=== PATIENT | male | born 1935 | race Caucasian/White ===

== ENCOUNTER 2019-03-29 21:41 | Inpatient (IN) | payer BC, MEDICARE ==
[~2019-03-29] VITALS: Ht 180.3 cm; Wt 85.8 kg
[2019-03-29 22:02] LABS: BASO # 0.1 x10^3/uL (0.0-0.2); BASO % 1 % (0-3); EOS # 0.1 x10^3/uL (0.0-0.7); EOS % 1 % (0-3); HEMATOCRIT 49.1 % (39.0-53.0); HEMOGLOBIN 16.9 g/dL (13.0-17.5); LYMPH # 0.9 x10^3/uL (1.0-4.8); LYMPH % 5 % (24-48); MEAN CORPUSCULAR HEMOGLOBIN 32 pg (25-35); MEAN CORPUSCULAR HGB CONC 35 g/dL (31-37); MEAN CORPUSCULAR VOLUME 93 fL (79-100); MONO # 0.8 x10^3/uL (0.0-1.1); MONO % 5 % (0-9); NEUT # 16.2 x10^3/uL (1.8-7.7); NEUT % 90 % (31-73); PLATELET COUNT 218 x10^3/uL (140-400); RED BLOOD COUNT 5.26 x10^6/uL (4.30-5.70); RED CELL DISTRIBUTION WIDTH 12.8 % (11.5-14.5); WHITE BLOOD COUNT 18.1 x10^3/uL (4.0-11.0)
--- NOTE | 2019-03-29 22:04 | PHYS DOC ---
Adult General Chief Complaint Chief Complaint: SHORTNESS OF BREATH HPI HPI Patient is a 83 year old male with history of emphysema who presents with acute onset fever, shortness of breath starting several hours prior to ED arrival. Patient tachypnea, O2 saturation of 81% on room air on ED arrival. Reports nonproductive cough, chills, body aches. Patient takes aspirin and albuterol daily. No recent hospital admissions or antibiotics. No history of CAD, congestive heart failure. No other acute symptoms or complaints. History obtained from the patient and the patient's spouse. Patient is visiting from out of state scheduled to return to [place] tomorrow. [] Review of Systems Review of Systems ROS as per HPI. All other review symptoms are negative. All other systems were reviewed and found to be within normal limits, except as documented in this note. Current Medications Current Medications Current Medications Medications (Trade) Dose Ordered Sig/Robi Start Time Stop Time Status Last Admin Dose Admin Acetaminophen (Tylenol) 650 mg 1X ONCE 03/29/19 22:15 03/29/19 22:16 DC 03/29/19 22:12 650 MG Albuterol Sulfate (Ventolin Neb Soln) 10 mg 1X ONCE 03/29/19 22:15 03/29/19 22:16 DC 03/29/19 22:15 10 MG Ipratropium [place] (Atrovent) 1 mg 1X ONCE 03/29/19 22:15 03/29/19 22:16 DC 03/29/19 22:15 1 MG Methylprednisolone Sodium Succinate (SOLU-Medrol 125MG VIAL) 125 mg 1X ONCE 03/29/19 22:15 03/29/19 22:16 DC 03/29/19 22:12 125 MG Sodium Chloride 1,000 ml @ 1,000 mls/hr 1X ONCE 03/29/19 22:15 03/29/19 23:14 DC 03/29/19 22:13 1,000 MLS/HR Physical Exam Physical Exam Constitutional: Acutely ill-appearing with rigors and moderate respiratory distress. [] HENT: Normocephalic, atraumatic, bilateral external ears normal, oropharynx moist, nose normal. [] Eyes: PERRLA, EOMI, conjunctiva normal. [] Neck: Normal range of motion, no tenderness, supple. [] Cardiovascular tachycardic.. [] Lungs & Thorax: Respirations dressed with labored, coarse diminished breath sounds bilaterally with rales in right lung base.[] Abdomen: Bowel sounds normal, soft, no tenderness. [] Skin: Warm, dry, no erythema, no rash. [] Back: No tenderness, no CVA tenderness. [] Extremities: No tenderness, no edema. [] Neurologic: Alert and oriented X 3, normal motor function, normal sensory function, no focal deficits noted. [] Psychologic: Affect normal, judgement normal, mood normal. [] Current Patient Data Vital Signs Vital Signs Date Time Temp Pulse Resp B/P (MAP) Pulse Ox O2 Delivery O2 Flow Rate FiO2 03/29/19 22:00 92 Venturi Mask 03/29/19 21:43 102.8 146 22 137/64 (88) 102.8 Lab Values Laboratory Tests Test 03/29/19 21:46 03/29/19 21:50 O2 Saturation 92 % (92-99) Arterial Blood pH 7.41 (7.35-7.45) Arterial Blood pCO2 at Patient Temp 34 mmHg (35-46) L Arterial Blood pO2 at Patient Temp 63 mmHg (65-108) L Arterial Blood HCO3 21 mmol/L (21-28) Arterial Blood Base Excess -3 mmol/L (-3-3) White Blood Count 18.1 x10^3/uL (4.0-11.0) H Red Blood Count 5.26 x10^6/uL (4.30-5.70) Hemoglobin 16.9 g/dL (13.0-17.5) Hematocrit 49.1 % (39.0-53.0) Mean Corpuscular Volume 93 fL (79-100) Mean Corpuscular Hemoglobin 32 pg (25-35) Mean Corpuscular Hemoglobin Concent 35 g/dL (31-37) Red Cell Distribution Width 12.8 % (11.5-14.5) Platelet Count 218 x10^3/uL (140-400) Neutrophils (%) (Auto) 90 % (31-73) H Lymphocytes (%) (Auto) 5 % (24-48) L Monocytes (%) (Auto) 5 % (0-9) Eosinophils (%) (Auto) 1 % (0-3) Basophils (%) (Auto) 1 % (0-3) Neutrophils # (Auto) 16.2 x10^3/uL (1.8-7.7) H Lymphocytes # (Auto) 0.9 x10^3/uL (1.0-4.8) L Monocytes # (Auto) 0.8 x10^3/uL (0.0-1.1) Eosinophils # (Auto) 0.1 x10^3/uL (0.0-0.7) Basophils # (Auto) 0.1 x10^3/uL (0.0-0.2) Segmented Neutrophils % 86 % (35-66) H Band Neutrophils % 2 % (0-9) Lymphocytes % 5 % (24-48) L Monocytes % 6 % (0-10) Eosinophils % 1 % (0-5) Toxic Granulation Slight Platelet Estimate Adequate (ADEQUATE) Sodium Level 142 mmol/L (136-145) Potassium Level 3.6 mmol/L (3.5-5.1) Chloride Level 101 mmol/L (98-107) Carbon Dioxide Level 29 mmol/L (21-32) Anion Gap 12 (6-14) Blood Urea Nitrogen 15 mg/dL (8-26) Creatinine 1.0 mg/dL (0.7-1.3) Estimated GFR (Cockcroft-Gault) 71.5 BUN/Creatinine Ratio 15 (6-20) Glucose Level 165 mg/dL (70-99) H Lactic Acid Level 2.8 mmol/L (0.4-2.0) H Calcium Level 9.7 mg/dL (8.5-10.1) Total Bilirubin 0.7 mg/dL (0.2-1.0) Aspartate Amino Transferase (AST) 20 U/L (15-37) Alanine Aminotransferase (ALT) 28 U/L (16-63) Alkaline Phosphatase 98 U/L (46-116) Troponin I Quantitative < 0.017 ng/mL (0.000-0.055) KE-Rcz-Z-Type Natriuretic Peptide 153 pg/mL (0-449) Total Protein 7.5 g/dL (6.4-8.2) Albumin 4.0 g/dL (3.4-5.0) Albumin/Globulin Ratio 1.1 (1.0-1.7) Laboratory Tests 03/29/19 21:50 Laboratory Tests 03/29/19 21:50 EKG EKG [EKG: Sinus tach, rate 135, right bundle branch block, further interpretation limited due to underlying artifact.] Radiology/Procedures Radiology/Procedures [Chest x-ray:No obvious discrete infiltrates] Course & Med Decision Making Course & Med Decision Making Pertinent Labs and Imaging studies reviewed. (See chart for details) [Breathing tx, abx, steroids, IVF and Tamiflu given. Patient requiring O2 by face mask at 4 L to maintain O2 sat> 90%. Dr. Marino to admit to the ICU. Case, labs, progress/current status reviewed in detail with Dr. Patton promotions producer for pulmonology who is agreement with current management. Patient may is at high risk for bipap and/or intubation. ] Dragon Disclaimer Dragon Disclaimer This electronic medical record was generated, in whole or in part, using a voice recognition dictation system. Departure Departure Impression: Primary Impression: Acute respiratory failure with hypoxia Additional Impressions: Sepsis Pneumonia COPD with exacerbation Disposition: ADMITTED INPATIENT Condition: CRITICAL Problem Qualifiers LEIGH ANN PABON DO Mar 29, 2019 22:03
[2019-03-29 22:13] LABS: CALCIUM 9.7 mg/dL (8.5-10.1); GFR 71.5; POTASSIUM 3.6 mmol/L (3.5-5.1)
[2019-03-29] MEDS ORDERED: IV NORMAL SALINE 1000ML BAG 1,000 ML IV ONE (22:15)
[2019-03-29] MEDS ORDERED: ALBUTEROL SULFATE 2.5 MG/3 ML NEBU. CONT NEB ONE (22:15)
[2019-03-29] MEDS ORDERED: IPRATROPIUM BROMIDE 0.5 MG/2.5 ML NEBU. NEB ONE (22:15)
[2019-03-29] MEDS ORDERED: ACETAMINOPHEN 325 MG TABLET. PO ONE (22:15)
[2019-03-29] MEDS ORDERED: methylPREDNISolone SOD SUCC PF 125 MG/2 ML VIAL. IV ONE (22:15)
[2019-03-29 22:18] LABS: % BANDS 2 % (0-9); % EOS 1 % (0-5); % LYMPHS 5 % (24-48); % MONOS 6 % (0-10); % SEGS 86 % (35-66); PLT ESTIMATE ADEQUATE (ADEQUATE); TOXIC GRANULATION SLIGHT
[2019-03-29 22:20] LABS: ALBUMIN/GLOBULIN RATIO 1.1 (1.0-1.7); TOTAL BILIRUBIN 0.7 mg/dL (0.2-1.0); TOTAL PROTEIN 7.5 g/dL (6.4-8.2)
[2019-03-29 22:24] LABS: BASE EXCESS ABG -3 mmol/L (-3-3); HCO3 ABG 21 mmol/L (21-28); PCO2 ABG 34 mmHg (35-46); PO2 ABG 63 mmHg (65-108); SAT O2 ABG 92 % (92-99)
[2019-03-29 22:49] LABS: INFLUENZA A PATIENT NEGATIVE (NEGATIVE); INFLUENZA B PATIENT NEGATIVE (NEGATIVE)
[2019-03-29] MEDS ORDERED: CEFEPIME HCL IV Push 1 GM VIAL. IVP ONE (23:00)
[2019-03-29] MEDS ORDERED: DOXYCYCLINE HYCLATE 100 MG in IV DEXTROSE 5% 100ML 100 ML IV ONE (23:30)
[2019-03-29] MEDS ORDERED: VANCOMYCIN 2 GM in IV NORMAL SALINE 500ML BAG 500 ML IV ONE (23:45)
[2019-03-30] VITALS (16 sets, daily range): BP systolic 120–171; BP diastolic 56–78
[2019-03-30] MEDS ORDERED: IV NORMAL SALINE 1000ML BAG 1,000 ML IV SCH
[2019-03-30] MEDS ORDERED: IBUPROFEN 400 MG TABLET. PO ONE (00:15)
[2019-03-30] MEDS ORDERED: IV NORMAL SALINE 1000ML BAG 1,000 ML IV ONE ×2 (01:00)
[2019-03-30] MEDS: VANCOMYCIN PER PHARMACY MC PRN ×2 (03:34→13:13)
--- NOTE | 2019-03-30 03:37 | NUR ---
Pharmacy Vancomycin Dosing Note S:Consulted to monitor and dose vancomycin started 03/30/19. O:DEEP BOYD is a 83 year old M with Sepsis Pneumonia . Height: 5 feet, 10 inches Weight: 90.154539 kg [place] Body Weight: 73.00 Adjusted Body Weight: 80.08 Dosing Weight: Actual Other Antibiotics: LABS: Last BUN: 15 Last Creatinine: 1.0 Creatinine Clearance: 64.5 mL/min Last WBC: 18.1 Last Procalcitonin: Tmax (past 24 hours): Microbiology: I/O: Drug Levels: Last level: on at Last dose given at Vancomycin Dosing: Loading Dose: 2000 mg x1 03/30/19 0200 Dosing Weight: Actual Target Trough: 15-20 A: Based on: Actual Wt and CrCl P: 1. 03/30/19 1400 Vancomycin 1500 mg IV q12h 2. Follow up Trough level on 03/31/19 at 1330 3. Pharmacy will continue to monitor, follow and adjust therapy as needed. ORAL BLOOM RPH, 03/30/19 0337 Signed: 03/30/19 at 0338 by ORAL BLOOM RPH PHA
--- NOTE | 2019-03-30 04:47 | NUR ---
THIS PATIENT IS BEING ADMITTED TO ICU ROOM 108 FROM THE ED. POSITIVE SEPSIS. UPON ARRIVAL PATIENT WITH IVFS INFUSING. REPORT RECEIVED FROM ANYA THOMPSON FROM ED. BLOOD CULTURES X2, ABX. ELEVATED LACTIC ACID WITH REPEAT THAT WAS NORMAL. PATIENT ALERT AND ORIENTED. FAMILY PRESENT AT ADMIT AND STATES THEY ARE FROM [place] AND WAS IN TOWN FOR HOLIDAY. PATIENT REPORTS SOA AND RESTING WITH EYES CLOSED. WILL CONOTINUE TO MONITOR.
[2019-03-30] MEDS: methylPREDNISolone SOD SUCC PF 125 MG/2 ML VIAL. IV SCH ×3 (05:45→20:22)
[2019-03-30] MEDS ORDERED: PANT20TA2 PO (06:34)
[2019-03-30] MEDS ORDERED: TIOT18CA IH (06:34)
[2019-03-30] MEDS ORDERED: LOSA-73 PO (06:34)
[2019-03-30] MEDS ORDERED: SITA50TA PO (06:34)
[2019-03-30] MEDS ORDERED: ASPI-630 PO (06:34)
[2019-03-30] MEDS ORDERED: HYDR12.58 PO (06:34)
[2019-03-30] MEDS ORDERED: ALBU2.5V14 NEB (06:34)
[2019-03-30 06:46] LABS: BASO % 0 % (0-3); EOS % 0 % (0-3); HEMATOCRIT 43.8 % (39.0-53.0); HEMOGLOBIN 14.7 g/dL (13.0-17.5); LYMPH # 0.5 x10^3/uL (1.0-4.8); LYMPH % 3 % (24-48); MEAN CORPUSCULAR HEMOGLOBIN 32 pg (25-35); MEAN CORPUSCULAR HGB CONC 34 g/dL (31-37); MEAN CORPUSCULAR VOLUME 94 fL (79-100); MONO # 0.7 x10^3/uL (0.0-1.1); MONO % 4 % (0-9); NEUT # 18.5 x10^3/uL (1.8-7.7); NEUT % 94 % (31-73); PLATELET COUNT 188 x10^3/uL (140-400); RED BLOOD COUNT 4.65 x10^6/uL (4.30-5.70); RED CELL DISTRIBUTION WIDTH 12.7 % (11.5-14.5); WHITE BLOOD COUNT 19.8 x10^3/uL (4.0-11.0)
[2019-03-30 07:00] LABS: CALCIUM 8.5 mg/dL (8.5-10.1); GFR 71.5; POTASSIUM 3.6 mmol/L (3.5-5.1)
[2019-03-30] MEDS: IPRATRPIUM/ALBUTEROL 0.5/2.5MG 3 ML NEBU. NEB SCH ×4 (07:29→19:53)
--- NOTE | 2019-03-30 07:41 | RAD ---
Indication: Shortness of breath TECHNIQUE:Portable AP chest X-ray COMPARISON: None FINDINGS: Heart is normal in size. Mild interstitial opacities without focal consolidation. No pneumothorax or large pleural effusion. Visualized bony thorax within normal limits. IMPRESSION: Mild interstitial opacities bilaterally may be secondary to atypical/viral infection or interstitial pulmonary edema. Electronically signed by: Stephon Ronquillo DO (03/30/2019 7:38 AM) [id number]
--- NOTE | 2019-03-30 07:45 | EKG ---
[facility] [address] [place] [address] Test Date: 2019-03-29 Test Time: 21:51:09 Pat Name: DEEP BOYD Department: Room: 108 1 Gender: M Farm Machinery Mechanic: : [id number] Requested By: WARREN MENA Order Number: [id number] Reading MD: Measurements Intervals [place] Rate: 135 P: -90 [place]: 142 QRS: 59 QRSD: 92 T: 41 QT: 274 QTc: 415 Interpretive Statements SUPRAVENTRICULAR TACHYCARDIA INCOMPLETE RIGHT BUNDLE BRANCH BLOCK NO SPECIFIC ECG ABNORMALITIES RI6.01 No previous ECG available for comparison
--- NOTE | 2019-03-30 08:00 | RAD ---
CHEST AP ONLY Clinical indications: Shortness of air. COMPARISON: March 29, 2019. Findings: There is a developing medial left lung base infiltrate. Bibasilar atelectasis is seen. No pleural effusion or pneumothorax is seen. The heart size, pulmonary vasculature, mediastinum and both anirudh are stable. Impression: Developing medial left lung base infiltrate. Electronically signed by: Gonsalo Vasques MD (03/30/2019 7:56 AM) [facility]
[2019-03-30] MEDS ORDERED: ACETAMINOPHEN 500 MG TABLET PO PRN (08:30)
[2019-03-30] MEDS ORDERED: levOFLOXacin PER PHARMACY. MC PRN (08:30)
[2019-03-30] MEDS ORDERED: ALBUTEROL SULFATE 2.5 MG/3 ML NEBU. NEB PRN (08:30)
[2019-03-30] MEDS ORDERED: DEXTROSE 50% 25 GM / 50ML DISP.SYRIN. IV PRN ×2 (08:30→13:15)
[2019-03-30] MEDS ORDERED: ACETAMINOPHEN/CODEINE 300/30MG TABLET. PO PRN (08:30)
[2019-03-30] MEDS ORDERED: guaiFENesin DM 200MG/20MG 10 ML SYRUP PO PRN (08:30)
[2019-03-30] MEDS ORDERED: OSELTAMIVIR 75 MG CAPSULE PO SCH (09:00)
[2019-03-30] MEDS: hydroCHLOROthiazide 12.5 MG CAPSULE PO SCH (09:19)
[2019-03-30] MEDS: BENZONATATE 100 MG CAPSULE. PO SCH ×3 (09:19→20:22)
[2019-03-30] MEDS: LINAGLIPTIN 5 MG TABLET PO SCH (09:20)
[2019-03-30] MEDS: PANTOPRAZOLE 40 MG TABLET.DR. PO SCH (09:20)
[2019-03-30] MEDS: ASPIRIN CHEWABLE 81 MG TABLET. PO SCH (09:20)
[2019-03-30] MEDS: LOSARTAN POTASSIUM 50 MG TABLET. PO SCH (09:20)
--- NOTE | 2019-03-30 10:34 | PDOC1 ---
History and Physical Date of Admission Date of Admission DATE: 03/30/19 TIME: 10:30 Identification/Chief Complaint Chief Complaint SOA and cough and fevers at home x 2-3 days Source Source: Caregiver, Chart review, Patient History of Present Illness History of Present Illness 83 white male, COPDer . ex smoker, with the above CC. Went to ER, 81% on arrival, coughing green phlegm,, low grade temp, SOA, tachypneic, sinus tachy, WBC elevated 18., CXR shows LEft ML PNA, Admitted to ICU, CAP coverage, FEels better currently,eating breakfast., Past Medical History Cardiovascular: HTN, Hyperlipidemia Pulmonary: Bronchitis, COPD Endocrine: Diabetes Past Surgical History Past Surgical History: No pertinent history Family History Family History: Family History Unknown Social History Smoke: Quit ALCOHOL: none Drugs: None Current Problem List Problem List Problems Medical Problems: (1) COPD with exacerbation Status: Acute (2) Sepsis Status: Acute Current Medications Current Medications Current Medications Albuterol Sulfate (Ventolin Neb Soln) 10 mg 1X ONCE CONT NEB Last administered on 03/29/19at 22:15; Start 03/29/19 at 22:15; Stop 03/29/19 at 22:16; Status DC Ipratropium [place] (Atrovent) 1 mg 1X ONCE NEB Last administered on 03/29/19at 22:15; Start 03/29/19 at 22:15; Stop 03/29/19 at 22:16; Status DC Methylprednisolone Sodium Succinate (SOLU-Medrol 125MG VIAL) 125 mg 1X ONCE IV Last administered on 03/29/19at 22:12; Start 03/29/19 at 22:15; Stop 03/29/19 at 22:16; Status DC Sodium Chloride 1,000 ml @ 1,000 mls/hr 1X ONCE IV Last administered on 03/29/19at 22:13; Start 03/29/19 at 22:15; Stop 03/29/19 at 23:14; Status DC Acetaminophen (Tylenol) 650 mg 1X ONCE PO Last administered on 03/29/19at 22:12; Start 03/29/19 at 22:15; Stop 03/29/19 at 22:16; Status DC Cefepime HCl (Maxipime) 1 gm 1X ONCE IVP Last administered on 03/29/19at 23:28; Start 03/29/19 at 23:00; Stop 03/29/19 at 23:01; Status DC Vancomycin HCl (Vanco Per Pharmacy) 1 each PRN DAILY PRN MC SEE COMMENTS Last administered on 03/30/19at 03:34; Start 03/29/19 at 22:45 Doxycycline Hyclate 100 mg/ Dextrose 100 ml @ 50 mls/hr 1X ONCE IV Last administered on 03/30/19at 02:02; Start 03/29/19 at 23:30; Stop 03/30/19 at 01:29; Status DC Vancomycin HCl 2 gm/Sodium Chloride 500 ml @ 250 mls/hr 1X ONCE IV Last administered on 03/30/19at 02:01; Start 03/29/19 at 23:45; Stop 03/30/19 at 01:44 ; Status DC Sodium Chloride 1,000 ml @ 1,000 mls/hr 1X ONCE IV Last administered on 03/30/19at 00:36; Start 03/30/19 at 00:00; Stop 03/30/19 at 00:59; Status DC Sodium Chloride 1,000 ml @ 1,000 mls/hr 1X ONCE IV Last administered on 03/30/19at 00:37; Start 03/30/19 at 01:00; Stop 03/30/19 at 01:59; Status DC Sodium Chloride 1,000 ml @ 125 mls/hr Q8H IV Last administered on 03/30/19at 02:01; Start 03/30/19 at 00:00; Stop 03/30/19 at 00:15; Status DC Albuterol/ Ipratropium (Duoneb) 3 ml RTQID NEB Last administered on 03/30/19at 07:29; Start 03/30/19 at 08:00; Stop 03/31/19 at 07:59 Methylprednisolone Sodium Succinate (SOLU-Medrol 125MG VIAL) 62.5 mg Q8HRS IV Last administered on 03/30/19at 05:45; Start 03/30/19 at 06:00 Oseltamivir Phosphate (Tamiflu) 75 mg BID PO Last administered on 03/30/19at 09:19; Start 03/30/19 at 09:00; Stop 04/04/19 at 08:59 Ibuprofen (Motrin) 400 mg 1X ONCE PO Last administered on 03/30/19at 01:02; Start 03/30/19 at 00:15; Stop 03/30/19 at 00:16; Status DC Vancomycin HCl 1.5 gm/Sodium Chloride 500 ml @ 250 mls/hr Q12H IV ; Start 03/30/19 at 14:00; Status Cancel Vancomycin HCl (Vancomycin Trough Level) 1 each 1X ONCE MC ; Start 03/31/19 at 13:30; Stop 03/31/19 at 13:31 Vancomycin HCl 1.25 gm/Sodium Chloride 250 ml @ 167 mls/hr Q12H IV ; Start 03/30/19 at 14:00 Benzonatate (Tessalon Perle) 100 mg [id number] PO Last administered on 03/30/19at 09:19; Start 03/30/19 at 09:00 Acetaminophen/ Codeine Phosphate (Tylenol #3) 1 tab PRN Q6HRS PRN PO MODERATE PAIN; Start 03/30/19 at 08:30 Acetaminophen (Tylenol) 500 mg PRN Q6HRS PRN PO MILD PAIN / TEMP; Start 03/30/19 at 08:30 Guaifenesin (Robitussin Dm) 10 ml PRN Q6HRS PRN PO COUGH; Start 03/30/19 at 08:30 Albuterol Sulfate (Ventolin Neb Soln) 2.5 mg PRN Q4HRS PRN NEB SHORTNESS OF BREATH; Start 03/30/19 at 08:30 Insulin Human Lispro (HumaLOG) 0-9 UNITS TIDWMEALS SQ ; Start 03/30/19 at 12:00 Dextrose (Dextrose 50%-Water Syringe) 12.5 gm PRN Q15MIN PRN IV SEE COMMENTS; Start 03/30/19 at 08:30 Aspirin (Children'S Aspirin) 81 mg DAILY PO Last administered on 03/30/19at 09:20; Start 03/30/19 at 09:00 Losartan Potassium (Cozaar) 50 mg DAILY PO Last administered on 03/30/19at 09:20; Start 03/30/19 at 09:00 Hydrochlorothiazide (Microzide) 12.5 mg DAILY PO Last administered on 03/30/19at 09:19; Start 03/30/19 at 09:00 Pantoprazole Sodium (Protonix) 40 mg DAILYAC PO Last administered on 03/30/19at 09:20; Start 03/30/19 at 09:00 Linagliptin (Tradjenta) 5 mg DAILY PO Last administered on 03/30/19at 09:20; Start 03/30/19 at 09:00 Levofloxacin/ Dextrose (Levaquin Per Pharmacy) 1 each PRN DAILY PRN MC SEE COMMENTS; Start 03/30/19 at 08:30 Levofloxacin/ Dextrose 100 ml @ 100 mls/hr Q24H IV Last administered on 03/30/19at 09:21; Start 03/30/19 at 09:00 Active Scripts Active Reported Albuterol Sulfate Conc Neb Soln (Albuterol Sulfate) 2.5 Mg/0.5 Ml Vial.neb 2.5 Mg NEB PRN PRN Hydrochlorothiazide Tablet (Hydrochlorothiazide) 12.5 Mg Tablet 12.5 Mg PO DAILY Spiriva (Tiotropium [place]) 18 Mcg Cap.w.dev 1 Cap IH DAILY Protonix (Pantoprazole Sodium) 20 Mg Tablet.dr 1 Tab PO DAILY Losartan Potassium 50 Mg Tablet 50 Mg PO DAILY Aspirin 81 Mg Tab.chew 1 Tab PO DAILY Januvia (Sitagliptin Phosphate) 50 Mg Tablet 1 Tab PO DAILY Allergies Allergies: Coded Allergies: adhesive tape (Verified Allergy, Unknown, 03/30/19) shellfish derived (Verified Allergy, Unknown, 03/30/19) ROS Review of System cough, fever,w eak, chest pain when coughs, all else neg Physical Exam General: No acute distress HEENT: Atraumatic, PERRLA, EOMI, Mucous membr. moist/pink Lungs: Normal air movement, Other (crackles, rhonchi, no wheezing, equal air entry) Heart: S1S2, RRR, no thrills, no rubs, no gallops, no murmurs Cardiovascular: S1, S2 Breasts: Normal, Rt breast nml w/o mass, Lt breast nml w/o mass, Nipples normal Abdomen: Normal bowel sounds, Soft, No tenderness, No hepatosplenomegaly, No masses Male Genitals Exam: normal genitalia, normal prostate PELVIC: Nml ext genitalia Extremities: No clubbing, No cyanosis, No edema, Normal pulses, No tenderness/swelling Skin: No rashes, No breakdown, No significant lesion Neuro: Normal gait, Normal speech, Strength at 5/5 X4 ext, Normal tone, Sensation intact, Cranial nerves 3-12 NL, Reflexes 2+ Psych/Mental Status: Mental status NL, Mood NL Vitals Vitals Vital Signs Date Time Temp Pulse Resp B/P (MAP) Pulse Ox O2 Delivery O2 Flow Rate FiO2 03/30/19 09:20 154/72 03/30/19 07:31 94 Venturi Mask 03/30/19 06:00 78 21 12.0 03/30/19 04:00 98.0 98.0 Labs Labs Laboratory Tests Test 03/29/19 21:46 03/29/19 21:50 03/29/19 22:25 03/29/19 23:34 O2 Saturation 92 % (92-99) Arterial Blood pH 7.41 (7.35-7.45) Arterial Blood pCO2 at Patient Temp 34 mmHg (35-46) Arterial Blood pO2 at Patient Temp 63 mmHg (65-108) Arterial Blood HCO3 21 mmol/L (21-28) Arterial Blood Base Excess -3 mmol/L (-3-3) White Blood Count 18.1 x10^3/uL (4.0-11.0) Red Blood Count 5.26 x10^6/uL (4.30-5.70) Hemoglobin 16.9 g/dL (13.0-17.5) Hematocrit 49.1 % (39.0-53.0) Mean Corpuscular Volume 93 fL (79-100) Mean Corpuscular Hemoglobin 32 pg (25-35) Mean Corpuscular Hemoglobin Concent 35 g/dL (31-37) Red Cell Distribution Width 12.8 % (11.5-14.5) Platelet Count 218 x10^3/uL (140-400) Neutrophils (%) (Auto) 90 % (31-73) Lymphocytes (%) (Auto) 5 % (24-48) Monocytes (%) (Auto) 5 % (0-9) Eosinophils (%) (Auto) 1 % (0-3) Basophils (%) (Auto) 1 % (0-3) Neutrophils # (Auto) 16.2 x10^3/uL (1.8-7.7) Lymphocytes # (Auto) 0.9 x10^3/uL (1.0-4.8) Monocytes # (Auto) 0.8 x10^3/uL (0.0-1.1) Eosinophils # (Auto) 0.1 x10^3/uL (0.0-0.7) Basophils # (Auto) 0.1 x10^3/uL (0.0-0.2) Segmented Neutrophils % 86 % (35-66) Band Neutrophils % 2 % (0-9) Lymphocytes % 5 % (24-48) Monocytes % 6 % (0-10) Eosinophils % 1 % (0-5) Toxic Granulation Slight Platelet Estimate Adequate (ADEQUATE) Sodium Level 142 mmol/L (136-145) Potassium Level 3.6 mmol/L (3.5-5.1) Chloride Level 101 mmol/L (98-107) Carbon Dioxide Level 29 mmol/L (21-32) Anion Gap 12 (6-14) Blood Urea Nitrogen 15 mg/dL (8-26) Creatinine 1.0 mg/dL (0.7-1.3) Estimated GFR (Cockcroft-Gault) 71.5 BUN/Creatinine Ratio 15 (6-20) Glucose Level 165 mg/dL (70-99) Lactic Acid Level 2.8 mmol/L (0.4-2.0) 1.8 mmol/L (0.4-2.0) Calcium Level 9.7 mg/dL (8.5-10.1) Total Bilirubin 0.7 mg/dL (0.2-1.0) Aspartate Amino Transf (AST/SGOT) 20 U/L (15-37) Alanine Aminotransferase (ALT/SGPT) 28 U/L (16-63) Alkaline Phosphatase 98 U/L (46-116) Troponin I Quantitative < 0.017 ng/mL (0.000-0.055) CM-Qvl-C-Type Natriuretic Peptide 153 pg/mL (0-449) Total Protein 7.5 g/dL (6.4-8.2) Albumin 4.0 g/dL (3.4-5.0) Albumin/Globulin Ratio 1.1 (1.0-1.7) Influenza Type A Antigen Negative (NEGATIVE) Influenza Type B Antigen Negative (NEGATIVE) Test 03/30/19 06:10 03/30/19 08:50 White Blood Count 19.8 x10^3/uL (4.0-11.0) Red Blood Count 4.65 x10^6/uL (4.30-5.70) Hemoglobin 14.7 g/dL (13.0-17.5) Hematocrit 43.8 % (39.0-53.0) Mean Corpuscular Volume 94 fL (79-100) Mean Corpuscular Hemoglobin 32 pg (25-35) Mean Corpuscular Hemoglobin Concent 34 g/dL (31-37) Red Cell Distribution Width 12.7 % (11.5-14.5) Platelet Count 188 x10^3/uL (140-400) Neutrophils (%) (Auto) 94 % (31-73) Lymphocytes (%) (Auto) 3 % (24-48) Monocytes (%) (Auto) 4 % (0-9) Eosinophils (%) (Auto) 0 % (0-3) Basophils (%) (Auto) 0 % (0-3) Neutrophils # (Auto) 18.5 x10^3/uL (1.8-7.7) Lymphocytes # (Auto) 0.5 x10^3/uL (1.0-4.8) Monocytes # (Auto) 0.7 x10^3/uL (0.0-1.1) Eosinophils # (Auto) 0.0 x10^3/uL (0.0-0.7) Basophils # (Auto) 0.0 x10^3/uL (0.0-0.2) Sodium Level 140 mmol/L (136-145) Potassium Level 3.6 mmol/L (3.5-5.1) Chloride Level 106 mmol/L (98-107) Carbon Dioxide Level 25 mmol/L (21-32) Anion Gap 9 (6-14) Blood Urea Nitrogen 18 mg/dL (8-26) Creatinine 1.0 mg/dL (0.7-1.3) Estimated GFR (Cockcroft-Gault) 71.5 Glucose Level 244 mg/dL (70-99) Calcium Level 8.5 mg/dL (8.5-10.1) Lactic Acid Level 2.0 mmol/L (0.4-2.0) Laboratory Tests Test 03/29/19 21:46 03/29/19 21:50 03/29/19 22:25 03/29/19 23:34 O2 Saturation 92 % (92-99) Arterial Blood pH 7.41 (7.35-7.45) Arterial Blood pCO2 at Patient Temp 34 mmHg (35-46) Arterial Blood pO2 at Patient Temp 63 mmHg (65-108) Arterial Blood HCO3 21 mmol/L (21-28) Arterial Blood Base Excess -3 mmol/L (-3-3) White Blood Count 18.1 x10^3/uL (4.0-11.0) Red Blood Count 5.26 x10^6/uL (4.30-5.70) Hemoglobin 16.9 g/dL (13.0-17.5) Hematocrit 49.1 % (39.0-53.0) Mean Corpuscular Volume 93 fL (79-100) Mean Corpuscular Hemoglobin 32 pg (25-35) Mean Corpuscular Hemoglobin Concent 35 g/dL (31-37) Red Cell Distribution Width 12.8 % (11.5-14.5) Platelet Count 218 x10^3/uL (140-400) Neutrophils (%) (Auto) 90 % (31-73) Lymphocytes (%) (Auto) 5 % (24-48) Monocytes (%) (Auto) 5 % (0-9) Eosinophils (%) (Auto) 1 % (0-3) Basophils (%) (Auto) 1 % (0-3) Neutrophils # (Auto) 16.2 x10^3/uL (1.8-7.7) Lymphocytes # (Auto) 0.9 x10^3/uL (1.0-4.8) Monocytes # (Auto) 0.8 x10^3/uL (0.0-1.1) Eosinophils # (Auto) 0.1 x10^3/uL (0.0-0.7) Basophils # (Auto) 0.1 x10^3/uL (0.0-0.2) Segmented Neutrophils % 86 % (35-66) Band Neutrophils % 2 % (0-9) Lymphocytes % 5 % (24-48) Monocytes % 6 % (0-10) Eosinophils % 1 % (0-5) Toxic Granulation Slight Platelet Estimate Adequate (ADEQUATE) Sodium Level 142 mmol/L (136-145) Potassium Level 3.6 mmol/L (3.5-5.1) Chloride Level 101 mmol/L (98-107) Carbon Dioxide Level 29 mmol/L (21-32) Anion Gap 12 (6-14) Blood Urea Nitrogen 15 mg/dL (8-26) Creatinine 1.0 mg/dL (0.7-1.3) Estimated GFR (Cockcroft-Gault) 71.5 BUN/Creatinine Ratio 15 (6-20) Glucose Level 165 mg/dL (70-99) Lactic Acid Level 2.8 mmol/L (0.4-2.0) 1.8 mmol/L (0.4-2.0) Calcium Level 9.7 mg/dL (8.5-10.1) Total Bilirubin 0.7 mg/dL (0.2-1.0) Aspartate Amino Transf (AST/SGOT) 20 U/L (15-37) Alanine Aminotransferase (ALT/SGPT) 28 U/L (16-63) Alkaline Phosphatase 98 U/L (46-116) Troponin I Quantitative < 0.017 ng/mL (0.000-0.055) YJ-Fmx-T-Type Natriuretic Peptide 153 pg/mL (0-449) Total Protein 7.5 g/dL (6.4-8.2) Albumin 4.0 g/dL (3.4-5.0) Albumin/Globulin Ratio 1.1 (1.0-1.7) Influenza Type A Antigen Negative (NEGATIVE) Influenza Type B Antigen Negative (NEGATIVE) Test 03/30/19 06:10 03/30/19 08:50 White Blood Count 19.8 x10^3/uL (4.0-11.0) Red Blood Count 4.65 x10^6/uL (4.30-5.70) Hemoglobin 14.7 g/dL (13.0-17.5) Hematocrit 43.8 % (39.0-53.0) Mean Corpuscular Volume 94 fL (79-100) Mean Corpuscular Hemoglobin 32 pg (25-35) Mean Corpuscular Hemoglobin Concent 34 g/dL (31-37) Red Cell Distribution Width 12.7 % (11.5-14.5) Platelet Count 188 x10^3/uL (140-400) Neutrophils (%) (Auto) 94 % (31-73) Lymphocytes (%) (Auto) 3 % (24-48) Monocytes (%) (Auto) 4 % (0-9) Eosinophils (%) (Auto) 0 % (0-3) Basophils (%) (Auto) 0 % (0-3) Neutrophils # (Auto) 18.5 x10^3/uL (1.8-7.7) Lymphocytes # (Auto) 0.5 x10^3/uL (1.0-4.8) Monocytes # (Auto) 0.7 x10^3/uL (0.0-1.1) Eosinophils # (Auto) 0.0 x10^3/uL (0.0-0.7) Basophils # (Auto) 0.0 x10^3/uL (0.0-0.2) Sodium Level 140 mmol/L (136-145) Potassium Level 3.6 mmol/L (3.5-5.1) Chloride Level 106 mmol/L (98-107) Carbon Dioxide Level 25 mmol/L (21-32) Anion Gap 9 (6-14) Blood Urea Nitrogen 18 mg/dL (8-26) Creatinine 1.0 mg/dL (0.7-1.3) Estimated GFR (Cockcroft-Gault) 71.5 Glucose Level 244 mg/dL (70-99) Calcium Level 8.5 mg/dL (8.5-10.1) Lactic Acid Level 2.0 mmol/L (0.4-2.0) VTE Prophylaxis Ordered VTE Prophylaxis Devices: Yes VTE Pharmacological Prophylaxi: Yes Assessment/Plan Assessment/Plan Acute hypoxic respi faiure - sats 81% on ER arrival Sepsis with no organ dysfcn LML PNA< gram pos, gram neg SInus tcahy, tachypneic, leukocytosis COPD on inhalers at home Ex smoker DM 2 on insulin HTN controlled PLAn: CAp coverage, add gram neg coverage\ SSI I reconciled home emds Pulmo COugh meds, nebs etc Can t.o ICU Full code may eat and ambulate Add PT OT TESSIE MALDONADO MD Mar 30, 2019 10:34
--- NOTE | 2019-03-30 11:55 | NUR ---
SS following for discharge planning. SS reviewed pt chart. Pt is from home with spouse and visiting from [place]. Pt is currently requiring oxygen. SS will continue to follow for discharge planning.
--- NOTE | 2019-03-30 12:10 | PDOC ---
PULMONARY PROGRESS NOTES Vitals Vital Signs Date Time Temp Pulse Resp B/P (MAP) Pulse Ox O2 Delivery O2 Flow Rate FiO2 03/30/19 11:45 94 Nasal Cannula 4.0 03/30/19 10:00 90 22 171/74 (106) 03/30/19 08:00 98.3 98.3 Cardiovascular: S1, S2 Labs Laboratory Tests Test 03/29/19 21:46 03/29/19 21:50 03/29/19 22:25 03/29/19 23:34 O2 Saturation 92 % (92-99) Arterial Blood pH 7.41 (7.35-7.45) Arterial Blood pCO2 at Patient Temp 34 mmHg (35-46) Arterial Blood pO2 at Patient Temp 63 mmHg (65-108) Arterial Blood HCO3 21 mmol/L (21-28) Arterial Blood Base Excess -3 mmol/L (-3-3) White Blood Count 18.1 x10^3/uL (4.0-11.0) Red Blood Count 5.26 x10^6/uL (4.30-5.70) Hemoglobin 16.9 g/dL (13.0-17.5) Hematocrit 49.1 % (39.0-53.0) Mean Corpuscular Volume 93 fL (79-100) Mean Corpuscular Hemoglobin 32 pg (25-35) Mean Corpuscular Hemoglobin Concent 35 g/dL (31-37) Red Cell Distribution Width 12.8 % (11.5-14.5) Platelet Count 218 x10^3/uL (140-400) Neutrophils (%) (Auto) 90 % (31-73) Lymphocytes (%) (Auto) 5 % (24-48) Monocytes (%) (Auto) 5 % (0-9) Eosinophils (%) (Auto) 1 % (0-3) Basophils (%) (Auto) 1 % (0-3) Neutrophils # (Auto) 16.2 x10^3/uL (1.8-7.7) Lymphocytes # (Auto) 0.9 x10^3/uL (1.0-4.8) Monocytes # (Auto) 0.8 x10^3/uL (0.0-1.1) Eosinophils # (Auto) 0.1 x10^3/uL (0.0-0.7) Basophils # (Auto) 0.1 x10^3/uL (0.0-0.2) Segmented Neutrophils % 86 % (35-66) Band Neutrophils % 2 % (0-9) Lymphocytes % 5 % (24-48) Monocytes % 6 % (0-10) Eosinophils % 1 % (0-5) Toxic Granulation Slight Platelet Estimate Adequate (ADEQUATE) Sodium Level 142 mmol/L (136-145) Potassium Level 3.6 mmol/L (3.5-5.1) Chloride Level 101 mmol/L (98-107) Carbon Dioxide Level 29 mmol/L (21-32) Anion Gap 12 (6-14) Blood Urea Nitrogen 15 mg/dL (8-26) Creatinine 1.0 mg/dL (0.7-1.3) Estimated GFR (Cockcroft-Gault) 71.5 BUN/Creatinine Ratio 15 (6-20) Glucose Level 165 mg/dL (70-99) Lactic Acid Level 2.8 mmol/L (0.4-2.0) 1.8 mmol/L (0.4-2.0) Calcium Level 9.7 mg/dL (8.5-10.1) Total Bilirubin 0.7 mg/dL (0.2-1.0) Aspartate Amino Transf (AST/SGOT) 20 U/L (15-37) Alanine Aminotransferase (ALT/SGPT) 28 U/L (16-63) Alkaline Phosphatase 98 U/L (46-116) Troponin I Quantitative < 0.017 ng/mL (0.000-0.055) DA-Ube-H-Type Natriuretic Peptide 153 pg/mL (0-449) Total Protein 7.5 g/dL (6.4-8.2) Albumin 4.0 g/dL (3.4-5.0) Albumin/Globulin Ratio 1.1 (1.0-1.7) Influenza Type A Antigen Negative (NEGATIVE) Influenza Type B Antigen Negative (NEGATIVE) Test 03/30/19 06:10 03/30/19 08:50 White Blood Count 19.8 x10^3/uL (4.0-11.0) Red Blood Count 4.65 x10^6/uL (4.30-5.70) Hemoglobin 14.7 g/dL (13.0-17.5) Hematocrit 43.8 % (39.0-53.0) Mean Corpuscular Volume 94 fL (79-100) Mean Corpuscular Hemoglobin 32 pg (25-35) Mean Corpuscular Hemoglobin Concent 34 g/dL (31-37) Red Cell Distribution Width 12.7 % (11.5-14.5) Platelet Count 188 x10^3/uL (140-400) Neutrophils (%) (Auto) 94 % (31-73) Lymphocytes (%) (Auto) 3 % (24-48) Monocytes (%) (Auto) 4 % (0-9) Eosinophils (%) (Auto) 0 % (0-3) Basophils (%) (Auto) 0 % (0-3) Neutrophils # (Auto) 18.5 x10^3/uL (1.8-7.7) Lymphocytes # (Auto) 0.5 x10^3/uL (1.0-4.8) Monocytes # (Auto) 0.7 x10^3/uL (0.0-1.1) Eosinophils # (Auto) 0.0 x10^3/uL (0.0-0.7) Basophils # (Auto) 0.0 x10^3/uL (0.0-0.2) Sodium Level 140 mmol/L (136-145) Potassium Level 3.6 mmol/L (3.5-5.1) Chloride Level 106 mmol/L (98-107) Carbon Dioxide Level 25 mmol/L (21-32) Anion Gap 9 (6-14) Blood Urea Nitrogen 18 mg/dL (8-26) Creatinine 1.0 mg/dL (0.7-1.3) Estimated GFR (Cockcroft-Gault) 71.5 Glucose Level 244 mg/dL (70-99) Calcium Level 8.5 mg/dL (8.5-10.1) Lactic Acid Level 2.0 mmol/L (0.4-2.0) Laboratory Tests Test 03/29/19 21:46 03/29/19 21:50 03/29/19 22:25 03/29/19 23:34 O2 Saturation 92 % (92-99) Arterial Blood pH 7.41 (7.35-7.45) Arterial Blood pCO2 at Patient Temp 34 mmHg (35-46) Arterial Blood pO2 at Patient Temp 63 mmHg (65-108) Arterial Blood HCO3 21 mmol/L (21-28) Arterial Blood Base Excess -3 mmol/L (-3-3) White Blood Count 18.1 x10^3/uL (4.0-11.0) Red Blood Count 5.26 x10^6/uL (4.30-5.70) Hemoglobin 16.9 g/dL (13.0-17.5) Hematocrit 49.1 % (39.0-53.0) Mean Corpuscular Volume 93 fL (79-100) Mean Corpuscular Hemoglobin 32 pg (25-35) Mean Corpuscular Hemoglobin Concent 35 g/dL (31-37) Red Cell Distribution Width 12.8 % (11.5-14.5) Platelet Count 218 x10^3/uL (140-400) Neutrophils (%) (Auto) 90 % (31-73) Lymphocytes (%) (Auto) 5 % (24-48) Monocytes (%) (Auto) 5 % (0-9) Eosinophils (%) (Auto) 1 % (0-3) Basophils (%) (Auto) 1 % (0-3) Neutrophils # (Auto) 16.2 x10^3/uL (1.8-7.7) Lymphocytes # (Auto) 0.9 x10^3/uL (1.0-4.8) Monocytes # (Auto) 0.8 x10^3/uL (0.0-1.1) Eosinophils # (Auto) 0.1 x10^3/uL (0.0-0.7) Basophils # (Auto) 0.1 x10^3/uL (0.0-0.2) Segmented Neutrophils % 86 % (35-66) Band Neutrophils % 2 % (0-9) Lymphocytes % 5 % (24-48) Monocytes % 6 % (0-10) Eosinophils % 1 % (0-5) Toxic Granulation Slight Platelet Estimate Adequate (ADEQUATE) Sodium Level 142 mmol/L (136-145) Potassium Level 3.6 mmol/L (3.5-5.1) Chloride Level 101 mmol/L (98-107) Carbon Dioxide Level 29 mmol/L (21-32) Anion Gap 12 (6-14) Blood Urea Nitrogen 15 mg/dL (8-26) Creatinine 1.0 mg/dL (0.7-1.3) Estimated GFR (Cockcroft-Gault) 71.5 BUN/Creatinine Ratio 15 (6-20) Glucose Level 165 mg/dL (70-99) Lactic Acid Level 2.8 mmol/L (0.4-2.0) 1.8 mmol/L (0.4-2.0) Calcium Level 9.7 mg/dL (8.5-10.1) Total Bilirubin 0.7 mg/dL (0.2-1.0) Aspartate Amino Transf (AST/SGOT) 20 U/L (15-37) Alanine Aminotransferase (ALT/SGPT) 28 U/L (16-63) Alkaline Phosphatase 98 U/L (46-116) Troponin I Quantitative < 0.017 ng/mL (0.000-0.055) CT-Itz-W-Type Natriuretic Peptide 153 pg/mL (0-449) Total Protein 7.5 g/dL (6.4-8.2) Albumin 4.0 g/dL (3.4-5.0) Albumin/Globulin Ratio 1.1 (1.0-1.7) Influenza Type A Antigen Negative (NEGATIVE) Influenza Type B Antigen Negative (NEGATIVE) Test 03/30/19 06:10 03/30/19 08:50 White Blood Count 19.8 x10^3/uL (4.0-11.0) Red Blood Count 4.65 x10^6/uL (4.30-5.70) Hemoglobin 14.7 g/dL (13.0-17.5) Hematocrit 43.8 % (39.0-53.0) Mean Corpuscular Volume 94 fL (79-100) Mean Corpuscular Hemoglobin 32 pg (25-35) Mean Corpuscular Hemoglobin Concent 34 g/dL (31-37) Red Cell Distribution Width 12.7 % (11.5-14.5) Platelet Count 188 x10^3/uL (140-400) Neutrophils (%) (Auto) 94 % (31-73) Lymphocytes (%) (Auto) 3 % (24-48) Monocytes (%) (Auto) 4 % (0-9) Eosinophils (%) (Auto) 0 % (0-3) Basophils (%) (Auto) 0 % (0-3) Neutrophils # (Auto) 18.5 x10^3/uL (1.8-7.7) Lymphocytes # (Auto) 0.5 x10^3/uL (1.0-4.8) Monocytes # (Auto) 0.7 x10^3/uL (0.0-1.1) Eosinophils # (Auto) 0.0 x10^3/uL (0.0-0.7) Basophils # (Auto) 0.0 x10^3/uL (0.0-0.2) Sodium Level 140 mmol/L (136-145) Potassium Level 3.6 mmol/L (3.5-5.1) Chloride Level 106 mmol/L (98-107) Carbon Dioxide Level 25 mmol/L (21-32) Anion Gap 9 (6-14) Blood Urea Nitrogen 18 mg/dL (8-26) Creatinine 1.0 mg/dL (0.7-1.3) Estimated GFR (Cockcroft-Gault) 71.5 Glucose Level 244 mg/dL (70-99) Calcium Level 8.5 mg/dL (8.5-10.1) Lactic Acid Level 2.0 mmol/L (0.4-2.0) Medications Active Scripts Medications Dose Route/Sig Max Daily Dose Days Date Category Albuterol Sulfate Conc Neb Soln (Albuterol Sulfate) 2.5 Mg/0.5 Ml Vial.neb 2.5 Mg NEB PRN PRN 03/30/19 Reported Hydrochlorothiazide Tablet (Hydrochlorothiazide) 12.5 Mg Tablet 12.5 Mg PO DAILY 03/30/19 Reported Spiriva (Tiotropium [place]) 18 Mcg Cap.w.dev 1 Cap IH DAILY 03/30/19 Reported Protonix (Pantoprazole Sodium) 20 Mg Tablet.dr 1 Tab PO DAILY 03/30/19 Reported Losartan Potassium 50 Mg Tablet 50 Mg PO DAILY 03/30/19 Reported Aspirin 81 Mg Tab.chew 1 Tab PO DAILY 03/30/19 Reported Januvia (Sitagliptin Phosphate) 50 Mg Tablet 1 Tab PO DAILY 03/30/19 Reported Impression . FULL NOTE DICTATED SEPSIS/PMEUMONIA/RESP FAILURE THANKS AGREE WITH CURRENT RX URSULA SR MD Mar 30, 2019 12:09
[2019-03-30] MEDS: INSULIN LISPRO 300 UNITS/3 ML VIAL. SQ SCH ×2 (12:16→17:19)
--- NOTE | 2019-03-30 12:49 | CONS ---
DATE OF CONSULTATION: 03/30/2019 ATTENDING PHYSICIAN: Dr. Caruso. REASON FOR CONSULTATION: The patient seen in pulmonary consultation at the request of Dr. Caruso for abnormal x-ray revealing left-sided infiltrate. HISTORY OF PRESENT ILLNESS: The patient is an 83-year-old with a history of COPD, quit tobacco in 1998, is up-to-date on his flu and pneumonia vaccination, presented with a 2-3 day history of subjective fevers, some shaking chills at home, cough productive of green sputum. The patient was evaluated in the Emergency Room, found to have a low O2 saturation on room air was 81%. He had a chest x-ray revealing left lower lobe infiltrate. He was admitted. He is currently in the intensive care unit. He is currently on IV antibiotics. I was asked to see him in consultation for further evaluation and management. The patient denies any nausea, vomiting, diarrhea. No sick contacts. He is visiting here from [place], he was with his son when he started to experience these symptoms. PAST MEDICAL HISTORY: Remarkable for hypertension, hyperlipidemia, COPD. He experiences one acute exacerbation per year. He also has diabetes, currently on no oxygen supplementation at home. PAST SURGICAL HISTORY: No past significant surgical history. FAMILY HISTORY: No family history of lung cancer. SOCIAL HISTORY: He quit tobacco in 1998. Worked as a market analyst. REVIEW OF SYSTEMS: As indicated above, otherwise a 10-point system was reviewed and negative. CONSTITUTIONAL: No fever or chills. EYES: No change in visual acuity. HENT: No nasal congestion or sore throat. PULMONARY: As indicated above. CARDIOVASCULAR: No chest pain. No pressure. GASTROINTESTINAL: No nausea, vomiting, diarrhea. GENITOURINARY: No dysuria or frequency. MUSCULOSKELETAL: No localized muscle aches or joint pains. SKIN: No new skin rashes. NEUROLOGIC: No headaches, diplopia or blurred vision. CURRENT MEDICATION: List was reviewed. PHYSICAL EXAMINATION: VITAL SIGNS: T-max was 102.8. He is currently on 4 liters of oxygen at one time, he was on Venturi mask at 15 liters. HEENT: Eyes, the sclerae were nonicteric. NECK: Jugular venous distention was not elevated. No lymphadenopathy. CHEST: Full expansion. LUNGS: Scattered rhonchi with expiratory wheeze. CARDIOVASCULAR: Regular rate and rhythm with S1, S2, no S3. ABDOMEN: Soft, nontender, nondistended. EXTREMITIES: No clubbing, cyanosis or edema. NEUROLOGICAL: The patient was awake, alert, following commands. A detailed neuro exam was not performed. LABORATORY DATA: Serology for influenza was negative. White count was 18,000. Arterial blood gas: pH of 7.41, PaCO2 of 34, pO2 of 63. RADIOLOGICAL DATA: Chest x-ray as indicated above. IMPRESSION: 1. Acute respiratory failure. 2. Sepsis. 3. Pneumonia, suspect gram-negative. 4. Acute exacerbation of chronic obstructive pulmonary disease. 5. Type 2 diabetes. 6. Leukocytosis. PLAN: 1. IV fluids. 2. IV antibiotics. 3. Oxygen supplementation. 4. Nebulized treatments. 5. Steroids. 6. Suspect the patient will require oxygen supplementation while traveling back home. I do appreciate the privilege in sharing in the patient's care. URSULA SR MD DR: KAYLEE/martha JOB#: [id number] / [id number]
--- NOTE | 2019-03-30 13:00 | NUR ---
This RN received report from ANYA Larkin in ICU. Pt transferred from room 108 to 588. Pt arrived on unit at approx 1340 by wheelchair. This RN started pt's NS @ 80. Pt is on 4 L per NC. No concerns at this time. Will continue to monitor this pt.
[2019-03-30] MEDS ORDERED: VANCOMYCIN 1.5 GM in IV NORMAL SALINE 500ML BAG 500 ML IV SCH (14:00)
[2019-03-30] MEDS: IV NORMAL SALINE 1000ML BAG 1,000 ML IV SCH (14:10)
[2019-03-30] MEDS: VANCOMYCIN 1.25 GM in IV NORMAL SALINE 250ML 250 ML IV SCH (14:12)
[2019-03-30] MEDS ORDERED: INSULIN LISPRO 300 UNITS/3 ML VIAL. SQ SCH (17:00)
[2019-03-30] MEDS: glyBURIDE 5 MG TABLET PO SCH (17:16)
[2019-03-30] MEDS: metFORMIN 500 MG TABLET PO SCH (17:16)
[2019-03-30] MEDS: LACTOBACILLUS RHAMNOSUS GG 1 CAPSULE. PO SCH (20:22)
[2019-03-30] MEDS: INSULIN GLARGINE SYRINGE. SQ SCH (20:26)
[2019-03-31 00:07] LABS: HEMOGLOBIN A1C 5.8 % (4.8-5.6)
[2019-03-31] MEDS: VANCOMYCIN 1.25 GM in IV NORMAL SALINE 250ML 250 ML IV SCH ×2 (01:51→16:02)
[2019-03-31] MEDS: IV NORMAL SALINE 1000ML BAG 1,000 ML IV SCH ×3 (01:51→19:33)
[2019-03-31 02:57] VITALS: BP 123/65
[2019-03-31 04:13] LABS: BASO % 0 % (0-3); EOS % 0 % (0-3); HEMATOCRIT 39.5 % (39.0-53.0); HEMOGLOBIN 13.4 g/dL (13.0-17.5); LYMPH # 0.6 x10^3/uL (1.0-4.8); LYMPH % 3 % (24-48); MEAN CORPUSCULAR HEMOGLOBIN 32 pg (25-35); MEAN CORPUSCULAR HGB CONC 34 g/dL (31-37); MEAN CORPUSCULAR VOLUME 94 fL (79-100); MONO # 0.6 x10^3/uL (0.0-1.1); MONO % 3 % (0-9); NEUT # 16.8 x10^3/uL (1.8-7.7); NEUT % 93 % (31-73); PLATELET COUNT 183 x10^3/uL (140-400); RED BLOOD COUNT 4.21 x10^6/uL (4.30-5.70); RED CELL DISTRIBUTION WIDTH 12.6 % (11.5-14.5)
[2019-03-31] MEDS: methylPREDNISolone SOD SUCC PF 125 MG/2 ML VIAL. IV SCH ×3 (06:08→21:04)
[2019-03-31 07:00] VITALS: BP 142/69
[2019-03-31] MEDS: PANTOPRAZOLE 40 MG TABLET.DR. PO SCH (07:30)
[2019-03-31] MEDS: INSULIN LISPRO 300 UNITS/3 ML VIAL. SQ SCH ×3 (08:00→17:00)
[2019-03-31] MEDS: glyBURIDE 5 MG TABLET PO SCH ×2 (08:00→17:08)
[2019-03-31] MEDS: metFORMIN 500 MG TABLET PO SCH ×2 (08:00→17:08)
[2019-03-31] MEDS: IPRATRPIUM/ALBUTEROL 0.5/2.5MG 3 ML NEBU. NEB SCH ×4 (08:44→20:00)
[2019-03-31] MEDS: LOSARTAN POTASSIUM 50 MG TABLET. PO SCH (08:45)
[2019-03-31] MEDS: ASPIRIN CHEWABLE 81 MG TABLET. PO SCH (08:45)
--- NOTE | 2019-03-31 08:45 | NUR ---
SW following pt. Pt is a transfer from ICU and is from [place]. PT rec home with assistance. Pt is currently on 4L 02 and might need an eval for home 02 needs. SW will be available as needed.
[2019-03-31] MEDS: LACTOBACILLUS RHAMNOSUS GG 1 CAPSULE. PO SCH ×2 (08:46→21:03)
[2019-03-31] MEDS: BENZONATATE 100 MG CAPSULE. PO SCH ×3 (08:46→21:03)
[2019-03-31] MEDS: LINAGLIPTIN 5 MG TABLET PO SCH (08:46)
[2019-03-31] MEDS: hydroCHLOROthiazide 12.5 MG CAPSULE PO SCH (08:46)
--- NOTE | 2019-03-31 09:28 | PDOC ---
PULMONARY PROGRESS NOTES Subjective PT FEELS BETTER LESS SOA Vitals Vital Signs Date Time Temp Pulse Resp B/P (MAP) Pulse Ox O2 Delivery O2 Flow Rate FiO2 03/31/19 08:45 71 142/69 03/31/19 07:00 97.4 18 96 Nasal Cannula 4.0 97.4 ROS: No Nausea, No Abdominal Pain, No Increase Cough General: Alert Lungs: Crackles Cardiovascular: S1, S2 Abdomen: Soft Neuro Exam: Alert Extremities: No Edema Skin: Warm Labs Laboratory Tests Test 03/29/19 21:46 03/29/19 21:50 03/29/19 22:25 03/29/19 23:34 O2 Saturation 92 % (92-99) Arterial Blood pH 7.41 (7.35-7.45) Arterial Blood pCO2 at Patient Temp 34 mmHg (35-46) Arterial Blood pO2 at Patient Temp 63 mmHg (65-108) Arterial Blood HCO3 21 mmol/L (21-28) Arterial Blood Base Excess -3 mmol/L (-3-3) White Blood Count 18.1 x10^3/uL (4.0-11.0) Red Blood Count 5.26 x10^6/uL (4.30-5.70) Hemoglobin 16.9 g/dL (13.0-17.5) Hematocrit 49.1 % (39.0-53.0) Mean Corpuscular Volume 93 fL (79-100) Mean Corpuscular Hemoglobin 32 pg (25-35) Mean Corpuscular Hemoglobin Concent 35 g/dL (31-37) Red Cell Distribution Width 12.8 % (11.5-14.5) Platelet Count 218 x10^3/uL (140-400) Neutrophils (%) (Auto) 90 % (31-73) Lymphocytes (%) (Auto) 5 % (24-48) Monocytes (%) (Auto) 5 % (0-9) Eosinophils (%) (Auto) 1 % (0-3) Basophils (%) (Auto) 1 % (0-3) Neutrophils # (Auto) 16.2 x10^3/uL (1.8-7.7) Lymphocytes # (Auto) 0.9 x10^3/uL (1.0-4.8) Monocytes # (Auto) 0.8 x10^3/uL (0.0-1.1) Eosinophils # (Auto) 0.1 x10^3/uL (0.0-0.7) Basophils # (Auto) 0.1 x10^3/uL (0.0-0.2) Segmented Neutrophils % 86 % (35-66) Band Neutrophils % 2 % (0-9) Lymphocytes % 5 % (24-48) Monocytes % 6 % (0-10) Eosinophils % 1 % (0-5) Toxic Granulation Slight Platelet Estimate Adequate (ADEQUATE) Sodium Level 142 mmol/L (136-145) Potassium Level 3.6 mmol/L (3.5-5.1) Chloride Level 101 mmol/L (98-107) Carbon Dioxide Level 29 mmol/L (21-32) Anion Gap 12 (6-14) Blood Urea Nitrogen 15 mg/dL (8-26) Creatinine 1.0 mg/dL (0.7-1.3) Estimated GFR (Cockcroft-Gault) 71.5 BUN/Creatinine Ratio 15 (6-20) Glucose Level 165 mg/dL (70-99) Lactic Acid Level 2.8 mmol/L (0.4-2.0) 1.8 mmol/L (0.4-2.0) Calcium Level 9.7 mg/dL (8.5-10.1) Total Bilirubin 0.7 mg/dL (0.2-1.0) Aspartate Amino Transf (AST/SGOT) 20 U/L (15-37) Alanine Aminotransferase (ALT/SGPT) 28 U/L (16-63) Alkaline Phosphatase 98 U/L (46-116) Troponin I Quantitative < 0.017 ng/mL (0.000-0.055) FH-Ywc-Y-Type Natriuretic Peptide 153 pg/mL (0-449) Total Protein 7.5 g/dL (6.4-8.2) Albumin 4.0 g/dL (3.4-5.0) Albumin/Globulin Ratio 1.1 (1.0-1.7) Influenza Type A Antigen Negative (NEGATIVE) Influenza Type B Antigen Negative (NEGATIVE) Test 03/30/19 06:10 03/30/19 08:50 03/30/19 12:10 03/30/19 12:11 White Blood Count 19.8 x10^3/uL (4.0-11.0) Red Blood Count 4.65 x10^6/uL (4.30-5.70) Hemoglobin 14.7 g/dL (13.0-17.5) Hematocrit 43.8 % (39.0-53.0) Mean Corpuscular Volume 94 fL (79-100) Mean Corpuscular Hemoglobin 32 pg (25-35) Mean Corpuscular Hemoglobin Concent 34 g/dL (31-37) Red Cell Distribution Width 12.7 % (11.5-14.5) Platelet Count 188 x10^3/uL (140-400) Neutrophils (%) (Auto) 94 % (31-73) Lymphocytes (%) (Auto) 3 % (24-48) Monocytes (%) (Auto) 4 % (0-9) Eosinophils (%) (Auto) 0 % (0-3) Basophils (%) (Auto) 0 % (0-3) Neutrophils # (Auto) 18.5 x10^3/uL (1.8-7.7) Lymphocytes # (Auto) 0.5 x10^3/uL (1.0-4.8) Monocytes # (Auto) 0.7 x10^3/uL (0.0-1.1) Eosinophils # (Auto) 0.0 x10^3/uL (0.0-0.7) Basophils # (Auto) 0.0 x10^3/uL (0.0-0.2) Sodium Level 140 mmol/L (136-145) Potassium Level 3.6 mmol/L (3.5-5.1) Chloride Level 106 mmol/L (98-107) Carbon Dioxide Level 25 mmol/L (21-32) Anion Gap 9 (6-14) Blood Urea Nitrogen 18 mg/dL (8-26) Creatinine 1.0 mg/dL (0.7-1.3) Estimated GFR (Cockcroft-Gault) 71.5 Glucose Level 244 mg/dL (70-99) Hemoglobin A1c 5.8 % (4.8-5.6) Calcium Level 8.5 mg/dL (8.5-10.1) Lactic Acid Level 2.0 mmol/L (0.4-2.0) 4.5 mmol/L (0.4-2.0) Glucose (Fingerstick) 357 mg/dL (70-99) Test 03/30/19 17:10 03/30/19 20:07 03/31/19 03:20 03/31/19 08:11 Glucose (Fingerstick) 306 mg/dL (70-99) 213 mg/dL (70-99) 179 mg/dL (70-99) White Blood Count 18.0 x10^3/uL (4.0-11.0) Red Blood Count 4.21 x10^6/uL (4.30-5.70) Hemoglobin 13.4 g/dL (13.0-17.5) Hematocrit 39.5 % (39.0-53.0) Mean Corpuscular Volume 94 fL (79-100) Mean Corpuscular Hemoglobin 32 pg (25-35) Mean Corpuscular Hemoglobin Concent 34 g/dL (31-37) Red Cell Distribution Width 12.6 % (11.5-14.5) Platelet Count 183 x10^3/uL (140-400) Neutrophils (%) (Auto) 93 % (31-73) Lymphocytes (%) (Auto) 3 % (24-48) Monocytes (%) (Auto) 3 % (0-9) Eosinophils (%) (Auto) 0 % (0-3) Basophils (%) (Auto) 0 % (0-3) Neutrophils # (Auto) 16.8 x10^3/uL (1.8-7.7) Lymphocytes # (Auto) 0.6 x10^3/uL (1.0-4.8) Monocytes # (Auto) 0.6 x10^3/uL (0.0-1.1) Eosinophils # (Auto) 0.0 x10^3/uL (0.0-0.7) Basophils # (Auto) 0.0 x10^3/uL (0.0-0.2) Laboratory Tests Test 03/30/19 12:10 03/30/19 12:11 03/30/19 17:10 03/30/19 20:07 Lactic Acid Level 4.5 mmol/L (0.4-2.0) Glucose (Fingerstick) 357 mg/dL (70-99) 306 mg/dL (70-99) 213 mg/dL (70-99) Test 03/31/19 03:20 03/31/19 08:11 White Blood Count 18.0 x10^3/uL (4.0-11.0) Red Blood Count 4.21 x10^6/uL (4.30-5.70) Hemoglobin 13.4 g/dL (13.0-17.5) Hematocrit 39.5 % (39.0-53.0) Mean Corpuscular Volume 94 fL (79-100) Mean Corpuscular Hemoglobin 32 pg (25-35) Mean Corpuscular Hemoglobin Concent 34 g/dL (31-37) Red Cell Distribution Width 12.6 % (11.5-14.5) Platelet Count 183 x10^3/uL (140-400) Neutrophils (%) (Auto) 93 % (31-73) Lymphocytes (%) (Auto) 3 % (24-48) Monocytes (%) (Auto) 3 % (0-9) Eosinophils (%) (Auto) 0 % (0-3) Basophils (%) (Auto) 0 % (0-3) Neutrophils # (Auto) 16.8 x10^3/uL (1.8-7.7) Lymphocytes # (Auto) 0.6 x10^3/uL (1.0-4.8) Monocytes # (Auto) 0.6 x10^3/uL (0.0-1.1) Eosinophils # (Auto) 0.0 x10^3/uL (0.0-0.7) Basophils # (Auto) 0.0 x10^3/uL (0.0-0.2) Glucose (Fingerstick) 179 mg/dL (70-99) Medications Active Scripts Medications Dose Route/Sig Max Daily Dose Days Date Category Albuterol Sulfate Conc Neb Soln (Albuterol Sulfate) 2.5 Mg/0.5 Ml Vial.neb 2.5 Mg NEB PRN PRN 03/30/19 Reported Hydrochlorothiazide Tablet (Hydrochlorothiazide) 12.5 Mg Tablet 12.5 Mg PO DAILY 03/30/19 Reported Spiriva (Tiotropium [place]) 18 Mcg Cap.w.dev 1 Cap IH DAILY 03/30/19 Reported Protonix (Pantoprazole Sodium) 20 Mg Tablet.dr 1 Tab PO DAILY 03/30/19 Reported Losartan Potassium 50 Mg Tablet 50 Mg PO DAILY 03/30/19 Reported Aspirin 81 Mg Tab.chew 1 Tab PO DAILY 03/30/19 Reported Januvia (Sitagliptin Phosphate) 50 Mg Tablet 1 Tab PO DAILY 03/30/19 Reported Impression . IMPRESSION: 1. Acute respiratory failure. 2. Sepsis. 3. Pneumonia, suspect gram-negative. 4. Acute exacerbation of chronic obstructive pulmonary disease. 5. Type 2 diabetes. 6. Leukocytosis. Plan . PLAN ON DC IN AM 6 MIN WALK OK TO TRAVEL ON PLANE WITH 02 ON FRIDAY 1. IV fluids. 2. IV antibiotics. 3. Oxygen supplementation. 4. Nebulized treatments. 5. Steroids. 6. Suspect the patient will require oxygen supplementation while traveling back home. URSULA SR MD Mar 31, 2019 09:28
[2019-03-31 11:00] VITALS: BP 144/60
--- NOTE | 2019-03-31 13:13 | PDOC ---
[employer] PROGRESS NOTE Chief Complaint Chief Complaint COPD exacerbation sepsis HTN Hyperlipidemia Bronchitis COPD Diabetes History of Present Illness History of Present Illness 03/31/19 Pt seen and examined by me CERNA RN Chart reviewed Vitals/I&O Vitals/I&O: Vital Signs Date Time Temp Pulse Resp B/P (MAP) Pulse Ox O2 Delivery O2 Flow Rate FiO2 03/31/19 11:52 93 Nasal Cannula 2.0 03/31/19 11:00 97.5 90 18 144/60 (88) 97.5 I & O 03/30/19 03/30/19 03/31/19 15:00 23:00 07:00 Intake Total 580 ml 1590 ml Output Total 1500 ml Balance -920 ml 1590 ml Physical Exam General: No acute distress Abdomen: Normal bowel sounds, Soft, No tenderness, No hepatosplenomegaly, No masses Extremities: No clubbing, No cyanosis, No edema, Normal pulses, No tenderness/swelling Skin: No rashes, No breakdown, No significant lesion Labs Labs: Laboratory Tests Test 03/30/19 17:10 03/30/19 20:07 03/31/19 03:20 03/31/19 08:11 Glucose (Fingerstick) 306 mg/dL (70-99) 213 mg/dL (70-99) 179 mg/dL (70-99) White Blood Count 18.0 x10^3/uL (4.0-11.0) Red Blood Count 4.21 x10^6/uL (4.30-5.70) Hemoglobin 13.4 g/dL (13.0-17.5) Hematocrit 39.5 % (39.0-53.0) Mean Corpuscular Volume 94 fL (79-100) Mean Corpuscular Hemoglobin 32 pg (25-35) Mean Corpuscular Hemoglobin Concent 34 g/dL (31-37) Red Cell Distribution Width 12.6 % (11.5-14.5) Platelet Count 183 x10^3/uL (140-400) Neutrophils (%) (Auto) 93 % (31-73) Lymphocytes (%) (Auto) 3 % (24-48) Monocytes (%) (Auto) 3 % (0-9) Eosinophils (%) (Auto) 0 % (0-3) Basophils (%) (Auto) 0 % (0-3) Neutrophils # (Auto) 16.8 x10^3/uL (1.8-7.7) Lymphocytes # (Auto) 0.6 x10^3/uL (1.0-4.8) Monocytes # (Auto) 0.6 x10^3/uL (0.0-1.1) Eosinophils # (Auto) 0.0 x10^3/uL (0.0-0.7) Basophils # (Auto) 0.0 x10^3/uL (0.0-0.2) Test 03/31/19 11:58 Glucose (Fingerstick) 196 mg/dL (70-99) Assessment and Plan Assessmemt and Plan Problems Medical Problems: (1) COPD with exacerbation Status: Acute (2) Sepsis Status: Acute HTN Hyperlipidemia Bronchitis COPD Diabetes Plan: continue abx continue steroids and breathing tx O2 dvt ppx full code probably d/c tomorrow when stable Comment Review of Relevant I have reviewed the following items roxana (where applicable) has been applied. Medications: Current Medications Medications (Trade) Dose Ordered Sig/Robi Route PRN Reason Start Time Stop Time Status Last Admin Dose Admin Vancomycin HCl 1.25 gm/Sodium Chloride 250 ml @ 167 mls/hr Q12H IV 03/30/19 14:00 03/31/19 01:51 Sodium Chloride 1,000 ml @ 80 mls/hr [id number] IV 03/30/19 13:15 03/31/19 01:51 Insulin Glargine (Lantus Syringe) 30 unit QHS SQ 03/30/19 21:00 03/30/19 20:26 Glyburide (Diabeta) 5 mg BIDWMEALS PO 03/30/19 17:00 03/31/19 08:00 Metformin HCl (Glucophage) 500 mg BIDWMEALS PO 03/30/19 17:00 03/31/19 08:00 Lactobacillus Rhamnosus (Culturelle) 1 cap BID PO 03/30/19 21:00 03/31/19 08:46 Albuterol/ Ipratropium (Duoneb) 3 ml RTQID NEB 03/31/19 08:40 03/31/19 11:52 WARREN MENA III DO Mar 31, 2019 13:13
[2019-03-31] MEDS: VANCOMYCIN PER PHARMACY MC PRN (14:27)
--- NOTE | 2019-03-31 14:27 | NUR ---
Pharmacy Vancomycin Dosing Note S:Consulted to monitor and dose vancomycin started 03/30/19. O:DEEP BOYD is a 83 year old M with Sepsis Pneumonia . Height: 5 feet, 11 inches Weight: 85.812757 kg [place] Body Weight: 75.30 Adjusted Body Weight: 81.46 Dosing Weight: Actual Other Antibiotics: LEVAQUIN 500MG IV Q24HRS LABS: Last BUN: 18 Last Creatinine: 1.0 Creatinine Clearance: 64.5 mL/min Last WBC: 19.8 Last Procalcitonin: - Tmax (past 24 hours): 102.8 Microbiology: BLOOD CX PENDING I/O: 580/1500 Drug Levels: Last Trough level: 13 on 03/31/19 at 1330 Last dose given 03/30/19 at 0200 Vancomycin Dosing: Loading Dose: 2000 mg x1 Dosing Weight: Actual Target Trough: 15-20 A: Based on: TROUGH AND CONDITION P: 1. Continue Vancomycin 1250 mg IV q12h 2. Follow up Trough level IF NEEDED 3. Pharmacy will continue to monitor, follow and adjust therapy as needed. JOSE GUADALUPE CARLSON RPH, 03/31/19 1427 Signed: 03/31/19 at 1428 by JOSE GUADALUPE CARLSON RPH PHA
[2019-03-31 15:00] VITALS: BP 115/61
[2019-03-31 19:00] VITALS: BP 145/71
[2019-03-31] MEDS: INSULIN GLARGINE SYRINGE. SQ SCH (21:09)
[2019-03-31 23:00] VITALS: BP 140/64
[2019-04-01] MEDS: VANCOMYCIN 1.25 GM in IV NORMAL SALINE 250ML 250 ML IV SCH (01:36)
[2019-04-01 03:00] VITALS: BP 161/65
[2019-04-01] MEDS: methylPREDNISolone SOD SUCC PF 125 MG/2 ML VIAL. IV SCH (05:44)
[2019-04-01 07:00] VITALS: BP 165/79
[2019-04-01] MEDS: IPRATRPIUM/ALBUTEROL 0.5/2.5MG 3 ML NEBU. NEB SCH ×3 (07:39→15:32)
[2019-04-01] MEDS: INSULIN LISPRO 300 UNITS/3 ML VIAL. SQ SCH ×2 (08:00→12:00)
[2019-04-01] MEDS: metFORMIN 500 MG TABLET PO SCH (09:18)
[2019-04-01] MEDS: ASPIRIN CHEWABLE 81 MG TABLET. PO SCH (09:18)
[2019-04-01] MEDS: BENZONATATE 100 MG CAPSULE. PO SCH (09:18)
[2019-04-01] MEDS: hydroCHLOROthiazide 12.5 MG CAPSULE PO SCH (09:18)
[2019-04-01] MEDS: LACTOBACILLUS RHAMNOSUS GG 1 CAPSULE. PO SCH (09:18)
[2019-04-01] MEDS: LINAGLIPTIN 5 MG TABLET PO SCH (09:19)
[2019-04-01] MEDS: LOSARTAN POTASSIUM 50 MG TABLET. PO SCH (09:19)
[2019-04-01] MEDS: glyBURIDE 5 MG TABLET PO SCH (09:19)
[2019-04-01] MEDS: PANTOPRAZOLE 40 MG TABLET.DR. PO SCH (09:19)
--- NOTE | 2019-04-01 10:29 | PDOC ---
PROGRESS NOTES Chief Complaint Chief Complaint impression acute COPD exacerbation stopped smoking in 1998 acute hypoxic resp failure will need o2 at one liter at rest, 2 liters with activity sepsis HTN Hyperlipidemia Bronchitis Developing medial left lung base infiltrate. by cxr COPD Diabetes d/w in room History of Present Illness History of Present Illness 04/01/19 Pt seen and examined by me CERNA RN Chart reviewed plan 6 MIN WALK OK TO TRAVEL ON PLANE WITH Friday if stable o2 support Vitals Vitals Vital Signs Date Time Temp Pulse Resp B/P (MAP) Pulse Ox O2 Delivery O2 Flow Rate FiO2 04/01/19 09:19 83 165/79 04/01/19 07:40 93 Nasal Cannula 1.0 04/01/19 07:00 97.3 16 97.3 Physical Exam General: Alert, Oriented X3, Cooperative, No acute distress Heart: Regular rate Lungs: Crackles Abdomen: Normal bowel sounds, Soft, No tenderness, No hepatosplenomegaly, No masses Extremities: No clubbing, No cyanosis, No edema, Normal pulses, No tenderness/swelling Skin: No rashes, No breakdown, No significant lesion Labs LABS SPEC #: [id number] KERI: 03/29/19 STATUS: RES REQ #: [id number] RECD: 03/29/[address] [facility] [address]: LEIGH ANN PABON DO SOURCE: BLOOD ENTR: 03/29/[address] [facility] [address]: VALERY: ORDERED: BCULT Procedure Result BLOOD CULTURE Preliminary NO GROWTH AFTER 2 DAYS PATIENT: DEEP BOYD ACCOUNT: [id number] : 1935 LOCATION: [facility] ICU AGE: 83 SEX: M EXAM STATUS: ADM IN ORD. PHYSICIAN: LEIGH ANN PABON DO REASON: SOA PROCEDURE: CHEST AP ONLY CHEST AP ONLY Clinical indications: Shortness of air. COMPARISON: March 29, 2019. Findings: There is a developing medial left lung base infiltrate. Bibasilar atelectasis is seen. No pleural effusion or pneumothorax is seen. The heart size, pulmonary vasculature, mediastinum and both anirudh are stable. Impression: Developing medial left lung base infiltrate. Electronically signed by: Sommer Vasques MD (03/30/2019 7:56 AM) [facility] DICTATED and SIGNED BY: SOMMER VASQUES MD DATE: 03/30/19 0756 Laboratory Tests Test 03/31/19 11:58 03/31/19 13:33 03/31/19 16:59 03/31/19 20:21 Glucose (Fingerstick) 196 mg/dL (70-99) 115 mg/dL (70-99) 112 mg/dL (70-99) Vancomycin Level Trough 13.0 mcg/mL (10.0-20.0) Vancomycin Last Dose Date Unknown Vancomycin Last Dose Time Unknown Test 04/01/19 07:51 Glucose (Fingerstick) 112 mg/dL (70-99) Assessment and Plan Assessmemt and Plan Problems Medical Problems: (1) COPD with exacerbation Status: Acute (2) Sepsis Status: Acute Neb Treatment Type * Hand Held Neb Neb Treatment Mode * Mouthpiece Respirations * 18 breaths/min Respiratory Pattern * Regular Work of Breathing * No Distress Breath Sounds * Coarse * Crackles Lung Location * Bilateral * Throughout Cough Description * Non Productive Oxygen Flow Rate * 1.0 Lpm Oxygen Delivery Method * Nasal Cannula Comment Review of Relevant I have reviewed the following items roxana (where applicable) has been applied. Labs Laboratory Tests Test 03/30/19 12:10 03/30/19 12:11 03/30/19 17:10 03/30/19 20:07 Lactic Acid Level 4.5 mmol/L (0.4-2.0) Glucose (Fingerstick) 357 mg/dL (70-99) 306 mg/dL (70-99) 213 mg/dL (70-99) Test 03/31/19 03:20 03/31/19 08:11 03/31/19 11:58 03/31/19 13:33 White Blood Count 18.0 x10^3/uL (4.0-11.0) Red Blood Count 4.21 x10^6/uL (4.30-5.70) Hemoglobin 13.4 g/dL (13.0-17.5) Hematocrit 39.5 % (39.0-53.0) Mean Corpuscular Volume 94 fL (79-100) Mean Corpuscular Hemoglobin 32 pg (25-35) Mean Corpuscular Hemoglobin Concent 34 g/dL (31-37) Red Cell Distribution Width 12.6 % (11.5-14.5) Platelet Count 183 x10^3/uL (140-400) Neutrophils (%) (Auto) 93 % (31-73) Lymphocytes (%) (Auto) 3 % (24-48) Monocytes (%) (Auto) 3 % (0-9) Eosinophils (%) (Auto) 0 % (0-3) Basophils (%) (Auto) 0 % (0-3) Neutrophils # (Auto) 16.8 x10^3/uL (1.8-7.7) Lymphocytes # (Auto) 0.6 x10^3/uL (1.0-4.8) Monocytes # (Auto) 0.6 x10^3/uL (0.0-1.1) Eosinophils # (Auto) 0.0 x10^3/uL (0.0-0.7) Basophils # (Auto) 0.0 x10^3/uL (0.0-0.2) Glucose (Fingerstick) 179 mg/dL (70-99) 196 mg/dL (70-99) Vancomycin Level Trough 13.0 mcg/mL (10.0-20.0) Vancomycin Last Dose Date Unknown Vancomycin Last Dose Time Unknown Test 03/31/19 16:59 03/31/19 20:21 04/01/19 07:51 Glucose (Fingerstick) 115 mg/dL (70-99) 112 mg/dL (70-99) 112 mg/dL (70-99) Laboratory Tests Test 03/31/19 11:58 03/31/19 13:33 03/31/19 16:59 03/31/19 20:21 Glucose (Fingerstick) 196 mg/dL (70-99) 115 mg/dL (70-99) 112 mg/dL (70-99) Vancomycin Level Trough 13.0 mcg/mL (10.0-20.0) Vancomycin Last Dose Date Unknown Vancomycin Last Dose Time Unknown Test 04/01/19 07:51 Glucose (Fingerstick) 112 mg/dL (70-99) Microbiology 03/29/19 Blood Culture - Preliminary, Resulted NO GROWTH AFTER 2 DAYS Medications Current Medications Albuterol Sulfate (Ventolin Neb Soln) 10 mg 1X ONCE CONT NEB Last administered on 03/29/19 22:15; Start 03/29/19 at 22:15; Stop 03/29/19 at 22:16; Status DC Ipratropium [place] (Atrovent) 1 mg 1X ONCE NEB Last administered on 03/29/19at 22:15; Start 03/29/19 at 22:15; Stop 03/29/19 at 22:16; Status DC Methylprednisolone Sodium Succinate (SOLU-Medrol 125MG VIAL) 125 mg 1X ONCE IV Last administered on 03/29/19at 22:12; Start 03/29/19 at 22:15; Stop 03/29/19 at 22:16; Status DC Sodium Chloride 1,000 ml @ 1,000 mls/hr 1X ONCE IV Last administered on 03/29/19at 22:13; Start 03/29/19 at 22:15; Stop 03/29/19 at 23:14; Status DC Acetaminophen (Tylenol) 650 mg 1X ONCE PO Last administered on 03/29/19at 22:12; Start 03/29/19 at 22:15; Stop 03/29/19 at 22:16; Status DC Cefepime HCl (Maxipime) 1 gm 1X ONCE IVP Last administered on 03/29/19at 23:28; Start 03/29/19 at 23:00; Stop 03/29/19 at 23:01; Status DC Vancomycin HCl (Vanco Per Pharmacy) 1 each PRN DAILY PRN MC SEE COMMENTS Last administered on 03/31/19at 14:27; Start 03/29/19 at 22:45 Doxycycline Hyclate 100 mg/ Dextrose 100 ml @ 50 mls/hr 1X ONCE IV Last administered on 03/30/19at 02:02; Start 03/29/19 at 23:30; Stop 03/30/19 at 0 1:29; Status DC Vancomycin HCl 2 gm/Sodium Chloride 500 ml @ 250 mls/hr 1X ONCE IV Last administered on 03/30/19at 02:01; Start 03/29/19 at 23:45; Stop 03/30/19 at 01:44; Status DC Sodium Chloride 1,000 ml @ 1,000 mls/hr 1X ONCE IV Last administered on 03/30/19at 00:36; Start 03/30/19 at 00:00; Stop 03/30/19 at 00:59; Status DC Sodium Chloride 1,000 ml @ 1,000 mls/hr 1X ONCE IV Last administered on 03/30/19at 00:37; Start 03/30/19 at 01:00; Stop 03/30/19 at 01:59; Status DC Sodium Chloride 1,000 ml @ 125 mls/hr Q8H IV Last administered on 03/30/19at 02:01; Start 03/30/19 at 00:00; Stop 03/30/19 at 00:15; Status DC Albuterol/ Ipratropium (Duoneb) 3 ml RTQID NEB Last administered on 03/30/19at 19:53; Start 03/30/19 at 08:00; Stop 03/31/19 at 07:59; Status DC Methylprednisolone Sodium Succinate (SOLU-Medrol 125MG VIAL) 62.5 mg Q8HRS IV Last administered on 04/01/19at 05:44; Start 03/30/19 at 06:00 Oseltamivir Phosphate (Tamiflu) 75 mg BID PO Last administered on 12/3/19at 09:19; Start 03/30/19 at 09:00; Stop 03/30/19 at 12:54; Status DC Ibuprofen (Motrin) 400 mg 1X ONCE PO Last administered on 03/30/19at 01:02; Start 03/30/19 at 00:15; Stop 03/30/19 at 00:16; Status DC Vancomycin HCl 1.5 gm/Sodium Chloride 500 ml @ 250 mls/hr Q12H IV ; Start at 14:00; Status Cancel Vancomycin HCl (Vancomycin Trough Level) 1 each 1X ONCE MC Last administered on 03/31/19at 13:30; Start 03/31/19 at 13:30; Stop 03/31/19 at 13:31; Status DC Vancomycin HCl 1.25 gm/Sodium Chloride 250 ml @ 167 mls/hr Q12H IV Last administered on 04/01/19at 01:36; Start 03/30/19 at 14:00 Benzonatate (Tessalon Perle) 100 mg [id number] PO Last administered on 04/01/19at 09:18; Start 03/30/19 at 09:00 Acetaminophen/ Codeine Phosphate (Tylenol #3) 1 tab PRN Q6HRS PRN PO MODERATE PAIN; Start 03/30/19 at 08:30 Acetaminophen (Tylenol) 500 mg PRN Q6HRS PRN PO MILD PAIN / TEMP; Start 03/30/19 at 08:30 Guaifenesin (Robitussin Dm) 10 ml PRN Q6HRS PRN PO COUGH 1ST CHOICE; Start 03/30/19 at 08:30 Albuterol Sulfate (Ventolin Neb Soln) 2.5 mg PRN Q4HRS PRN NEB SHORTNESS OF BREATH; Start 03/30/19 at 08:30 Insulin Human Lispro (HumaLOG) 0-9 UNITS TIDWMEALS SQ Last administered on 03/31/19at 12:30; Start 03/30/19 at 12:00 Dextrose (Dextrose 50%-Water Syringe) 12.5 gm PRN Q15MIN PRN IV SEE COMMENTS; Start 03/30/19 at 08:30 Aspirin (Children'S Aspirin) 81 mg DAILY PO Last administered on 04/01/19at 09:18; Start 03/30/19 at 09:00 Losartan Potassium (Cozaar) 50 mg DAILY PO Last administered on 04/01/19 09:19; Start 03/30/19 at 09:00 Hydrochlorothiazide (Microzide) 12.5 mg DAILY PO Last administered on 04/01/19 09:18; Start 03/30/19 at 09:00 Pantoprazole Sodium (Protonix) 40 mg DAILYAC PO Last administered on 04/01/19 09:19; Start 03/30/19 at 09:00 Linagliptin (Tradjenta) 5 mg DAILY PO Last administered on 04/01/19 09:19; Start 03/30/19 at 09:00 Levofloxacin/ Dextrose (Levaquin Per Pharmacy) 1 each PRN DAILY PRN MC SEE COMMENTS; Start 03/30/19 at 08:30 Levofloxacin/ Dextrose 100 ml @ 100 mls/hr Q24H IV Last administered on 04/01/19 09:22; Start 03/30/19 at 09:00 Sodium Chloride 1,000 ml @ 80 mls/hr [id number] IV Last administered on 03/31/19 19:33; Start 03/30/19 at 13:15 Insulin Human Lispro (HumaLOG) 0-9 UNITS TIDWMEALS SQ ; Start 03/30/19 at 17:00; Stop 03/30/19 at 13:15; Status DC Dextrose (Dextrose 50%-Water Syringe) 12.5 gm PRN Q15MIN PRN IV SEE COMMENTS; Start 03/30/19 at 13:15; Stop 03/30/19 at 13:14; Status DC Insulin Glargine (Lantus Syringe) 30 unit QHS SQ Last administered on 03/31/19at 21:09; Start 03/30/19 at 21:00 Glyburide (Diabeta) 5 mg BIDWMEALS PO Last administered on 04/01/19 09:19; Start 03/30/19 at 17:00 Metformin HCl (Glucophage) 500 mg BIDWMEALS PO Last administered on 04/01/19 09:18; Start 03/30/19 at 17:00 Lactobacillus Rhamnosus (Culturelle) 1 cap BID PO Last administered on 04/01/19 09:18; Start 03/30/19 at 21:00 Albuterol/ Ipratropium (Duoneb) 3 ml RTQID NEB Last administered on 04/01/19at 07:39; Start 03/31/19 at 08:40 Active Scripts Active Reported Albuterol Sulfate Conc Neb Soln (Albuterol Sulfate) 2.5 Mg/0.5 Ml Vial.neb 2.5 Mg NEB PRN PRN Hydrochlorothiazide Tablet (Hydrochlorothiazide) 12.5 Mg Tablet 12.5 Mg PO DAILY Spiriva (Tiotropium [place]) 18 Mcg Cap.w.dev 1 Cap IH DAILY Protonix (Pantoprazole Sodium) 20 Mg Tablet.dr 1 Tab PO DAILY Losartan Potassium 50 Mg Tablet 50 Mg PO DAILY Aspirin 81 Mg Tab.chew 1 Tab PO DAILY Januvia (Sitagliptin Phosphate) 50 Mg Tablet 1 Tab PO DAILY Vitals/I & O Vital Sign - Last 24 Hours 03/31/19 03/31/19 03/31/19 03/31/19 11:00 11:52 15:00 16:38 Temp 97.5 97.5 97.5 97.5 Pulse 90 85 Resp 18 16 B/P (MAP) 144/60 (88) 115/61 (79) Pulse Ox 93 93 95 93 O2 Delivery Nasal Cannula Nasal Cannula Nasal Cannula Nasal Cannula O2 Flow Rate 4.0 2.0 1.0 1.0 03/31/19 03/31/19 03/31/19 03/31/19 19:00 19:10 20:02 23:00 Temp 98.3 98.3 98.3 98.3 Pulse 87 92 Resp 18 B/P (MAP) 145/71 (95) 140/64 (89) Pulse Ox 94 93 92 O2 Delivery Room Air Nasal Cannula Nasal Cannula Nasal Cannula O2 Flow Rate 1.0 1.0 1.0 04/01/19 04/01/19 04/01/19 04/01/19 03:00 07:00 07:40 09:19 Temp 98.2 97.3 98.2 97.3 Pulse 83 83 83 Resp 20 16 B/P (MAP) 161/65 (97) 165/79 (107) 165/79 Pulse Ox 93 95 93 O2 Delivery Room Air Nasal Cannula Nasal Cannula O2 Flow Rate 1.0 1.0 Intake and Output 03/31/19 03/31/19 04/01/19 15:00 23:00 07:00 Intake Total 1000 ml 590 ml Output Total 200 ml Balance 800 ml 590 ml CHARLIE CONNOR MD Apr 01, 2019 10:29
[2019-04-01 11:00] VITALS: BP 162/75
--- NOTE | 2019-04-01 11:35 | PDOC ---
PULMONARY PROGRESS NOTES Subjective PT FEELS BETTER LESS SOA Vitals Vital Signs Date Time Temp Pulse Resp B/P (MAP) Pulse Ox O2 Delivery O2 Flow Rate FiO2 04/01/19 11:32 Nasal Cannula 1.0 04/01/19 09:19 83 165/79 04/01/19 07:40 93 04/01/19 07:00 97.3 16 97.3 ROS: No Nausea, No Abdominal Pain, No Increase Cough General: Alert Lungs: Crackles Cardiovascular: S1, S2 Abdomen: Soft Neuro Exam: Alert Extremities: No Edema Skin: Warm Labs Laboratory Tests Test 03/30/19 12:10 03/30/19 12:11 03/30/19 17:10 03/30/19 20:07 Lactic Acid Level 4.5 mmol/L (0.4-2.0) Glucose (Fingerstick) 357 mg/dL (70-99) 306 mg/dL (70-99) 213 mg/dL (70-99) Test 03/31/19 03:20 03/31/19 08:11 03/31/19 11:58 03/31/19 13:33 White Blood Count 18.0 x10^3/uL (4.0-11.0) Red Blood Count 4.21 x10^6/uL (4.30-5.70) Hemoglobin 13.4 g/dL (13.0-17.5) Hematocrit 39.5 % (39.0-53.0) Mean Corpuscular Volume 94 fL (79-100) Mean Corpuscular Hemoglobin 32 pg (25-35) Mean Corpuscular Hemoglobin Concent 34 g/dL (31-37) Red Cell Distribution Width 12.6 % (11.5-14.5) Platelet Count 183 x10^3/uL (140-400) Neutrophils (%) (Auto) 93 % (31-73) Lymphocytes (%) (Auto) 3 % (24-48) Monocytes (%) (Auto) 3 % (0-9) Eosinophils (%) (Auto) 0 % (0-3) Basophils (%) (Auto) 0 % (0-3) Neutrophils # (Auto) 16.8 x10^3/uL (1.8-7.7) Lymphocytes # (Auto) 0.6 x10^3/uL (1.0-4.8) Monocytes # (Auto) 0.6 x10^3/uL (0.0-1.1) Eosinophils # (Auto) 0.0 x10^3/uL (0.0-0.7) Basophils # (Auto) 0.0 x10^3/uL (0.0-0.2) Glucose (Fingerstick) 179 mg/dL (70-99) 196 mg/dL (70-99) Vancomycin Level Trough 13.0 mcg/mL (10.0-20.0) Vancomycin Last Dose Date Unknown Vancomycin Last Dose Time Unknown Test 03/31/19 16:59 03/31/19 20:21 04/01/19 07:51 Glucose (Fingerstick) 115 mg/dL (70-99) 112 mg/dL (70-99) 112 mg/dL (70-99) Laboratory Tests Test 03/31/19 11:58 03/31/19 13:33 03/31/19 16:59 03/31/19 20:21 Glucose (Fingerstick) 196 mg/dL (70-99) 115 mg/dL (70-99) 112 mg/dL (70-99) Vancomycin Level Trough 13.0 mcg/mL (10.0-20.0) Vancomycin Last Dose Date Unknown Vancomycin Last Dose Time Unknown Test 04/01/19 07:51 Glucose (Fingerstick) 112 mg/dL (70-99) Medications Active Scripts Medications Dose Route/Sig Max Daily Dose Days Date Category Albuterol Sulfate Conc Neb Soln (Albuterol Sulfate) 2.5 Mg/0.5 Ml Vial.neb 2.5 Mg NEB PRN PRN 03/30/19 Reported Hydrochlorothiazide Tablet (Hydrochlorothiazide) 12.5 Mg Tablet 12.5 Mg PO DAILY 03/30/19 Reported Spiriva (Tiotropium [place]) 18 Mcg Cap.w.dev 1 Cap IH DAILY 03/30/19 Reported Protonix (Pantoprazole Sodium) 20 Mg Tablet.dr 1 Tab PO DAILY 03/30/19 Reported Losartan Potassium 50 Mg Tablet 50 Mg PO DAILY 03/30/19 Reported Aspirin 81 Mg Tab.chew 1 Tab PO DAILY 03/30/19 Reported Januvia (Sitagliptin Phosphate) 50 Mg Tablet 1 Tab PO DAILY 03/30/19 Reported Impression . IMPRESSION: 1. Acute respiratory failure. 2. Sepsis. 3. Pneumonia, suspect gram-negative. 4. Acute exacerbation of chronic obstructive pulmonary disease. 5. Type 2 diabetes. 6. Leukocytosis. Plan . DC HOME RX FOR AUGMENTIN AND STEROIDS RX TO TRAVEL NEEDS 02 FOLLOW UP WITH PCP IN [place] URSULA SR MD Apr 01, 2019 11:35
--- NOTE | 2019-04-01 12:58 | PDOC3 ---
Discharge Summary Date of Admission: Mar 29, 2019 Date of Discharge: Apr 01, 2019 Follow-Up: 3-5 days Admitting Diagnosis comment: impression acute COPD exacerbation stopped smoking in 1998 acute hypoxic resp failure will need o2 at one liter at rest, 2 liters with activity sepsis HTN Hyperlipidemia Bronchitis Developing medial left lung base infiltrate. by cxr COPD Diabetes d/w in room History of Present Illness History of Present Illness 04/01/19 Pt seen and examined by me CERNA RN Chart reviewed plan 6 MIN WALK OK TO TRAVEL ON PLANE WITH 02 today if stable rx augmentin and steroids o2 support d/c planning 28 min Vitals Vitals Vital Signs Date Time Temp Pulse Resp B/P (MAP) Pulse Ox O2 Delivery O2 Flow Rate FiO2 04/01/19 09:19 83 165/79 04/01/19 07:40 93 Nasal Cannula 1.0 04/01/19 07:00 97.3 16 97.3 Physical Exam General: Alert, Oriented X3, Cooperative, No acute distress Heart: Regular rate Lungs: Crackles Abdomen: Normal bowel sounds, Soft, No tenderness, No hepatosplenomegaly, No masses Extremities: No clubbing, No cyanosis, No edema, Normal pulses, No tenderness/swelling Skin: No rashes, No breakdown, No significant lesion FINAL DIAGNOSIS Problems Medical Problems: (1) COPD with exacerbation Status: Acute (2) Sepsis Status: Acute Brief Hospital Course Mr. Quintanilla is a 83 old [sex] who presented with [ pneumonia] CONDITION AT DISCHARGE: Improved Discharge Medications Current Medications Albuterol Sulfate (Ventolin Neb Soln) 10 mg 1X ONCE CONT NEB Last administered on 03/29/19at 22:15; Start 03/29/19 at 22:15; Stop 03/29/19 at 22:16; Status DC Ipratropium [place] (Atrovent) 1 mg 1X ONCE NEB Last administered on 03/29/19at 22:15; Start 03/29/19 at 22:15; Stop 03/29/19 at 22:16; Status DC Methylprednisolone Sodium Succinate (SOLU-Medrol 125MG VIAL) 125 mg 1X ONCE IV Last administered on 03/29/19at 22:12; Start 03/29/19 at 22:15; Stop 03/29/19 at 22:16; Status DC Sodium Chloride 1,000 ml @ 1,000 mls/hr 1X ONCE IV Last administered on 03/29/19 22:13; Start 03/29/19 at 22:15; Stop 03/29/19 at 23:14; Status DC Acetaminophen (Tylenol) 650 mg 1X ONCE PO Last administered on 03/29/19 22:12; Start 03/29/19 at 22:15; Stop 03/29/19 at 22:16; Status DC Cefepime HCl (Maxipime) 1 gm 1X ONCE IVP Last administered on 03/29/19at 23:28; Start 03/29/19 at 23:00; Stop 03/29/19 at 23:01; Status DC Vancomycin HCl (Vanco Per Pharmacy) 1 each PRN DAILY PRN MC SEE COMMENTS Last administered on 03/31/19at 14:27; Start 03/29/19 at 22:45 Doxycycline Hyclate 100 mg/ Dextrose 100 ml @ 50 mls/hr 1X ONCE IV Last administered on 03/30/19 02:02; Start 03/29/19 at 23:30; Stop 03/30/19 at 01:29; Status DC Vancomycin HCl 2 gm/Sodium Chloride 500 ml @ 250 mls/hr 1X ONCE IV Last administered on 03/30/19 02:01; Start 03/29/19 at 23:45; Stop 03/30/19 at 01:44; Status DC Sodium Chloride 1,000 ml @ 1,000 mls/hr 1X ONCE IV Last administered on 03/30/19at 00:36; Start 03/30/19 at 00:00; Stop 03/30/19 at 00:59; Status DC Sodium Chloride 1,000 ml @ 1,000 mls/hr 1X ONCE IV Last administered on 03/30/19at 00:37; Start 03/30/19 at 01:00; Stop 03/30/19 at 01:59; Status DC Sodium Chloride 1,000 ml @ 125 mls/hr Q8H IV Last administered on 03/30/19at 02:01; Start 03/30/19 at 00:00; Stop 03/30/19 at 00:15; Status DC Albuterol/ Ipratropium (Duoneb) 3 ml RTQID NEB Last administered on 03/30/19at 19:53; Start 03/30/19 at 08:00; Stop 03/31/19 at 07:59; Status DC Methylprednisolone Sodium Succinate (SOLU-Medrol 125MG VIAL) 62.5 mg Q8HRS IV Last administered on 04/01/19at 05:44; Start 03/30/19 at 06:00 Oseltamivir Phosphate (Tamiflu) 75 mg BID PO Last administered on 03/30/19at 09:19; Start 03/30/19 at 09:00; Stop 03/30/19 at 12:54; Status DC Ibuprofen (Motrin) 400 mg 1X ONCE PO Last administered on 03/30/19at 01:02; Start 03/30/19 at 00:15; Stop 03/30/19 at 00:16; Status DC Vancomycin HCl 1.5 gm/Sodium Chloride 500 ml @ 250 mls/hr Q12H IV ; Start 03/30/19 at 14:00; Status Cancel Vancomycin HCl (Vancomycin Trough Level) 1 each 1X ONCE MC Last administered on 03/31/19at 13:30; Start 03/31/19 at 13:30; Stop 03/31/19 at 13:31; Status DC Vancomycin HCl 1.25 gm/Sodium Chloride 250 ml @ 167 mls/hr Q12H IV Last administered on 04/01/19at 01:36; Start 03/30/19 at 14:00 Benzonatate (Tessalon Perle) 100 mg [id number] PO Last administered on 04/01/19at 09:18; Start 03/30/19 at 09:00 Acetaminophen/ Codeine Phosphate (Tylenol #3) 1 tab PRN Q6HRS PRN PO MODERATE PAIN; Start 03/30/19 at 08:30 Acetaminophen (Tylenol) 500 mg PRN Q6HRS PRN PO MILD PAIN / TEMP; Start 03/30/19 at 08:30 Guaifenesin (Robitussin Dm) 10 ml PRN Q6HRS PRN PO COUGH 1ST CHOICE; Start 03/30/19 at 08:30 Albuterol Sulfate (Ventolin Neb Soln) 2.5 mg PRN Q4HRS PRN NEB SHORTNESS OF BREATH; Start 03/30/19 at 08:30 Insulin Human Lispro (HumaLOG) 0-9 UNITS TIDWMEALS SQ Last administered on 03/31/19at 12:30; Start 03/30/19 at 12:00 Dextrose (Dextrose 50%-Water Syringe) 12.5 gm PRN Q15MIN PRN IV SEE COMMENTS; Start 03/30/19 at 08:30 Aspirin (Children'S Aspirin) 81 mg DAILY PO Last administered on 04/01/19 09:18; Start 03/30/19 at 09:00 Losartan Potassium (Cozaar) 50 mg DAILY PO Last administered on 04/01/19 09:19; Start 03/30/19 at 09:00 Hydrochlorothiazide (Microzide) 12.5 mg DAILY PO Last administered on 04/01/19 09:18; Start 03/30/19 at 09:00 Pantoprazole Sodium (Protonix) 40 mg DAILYAC PO Last administered on 04/01/19 09:19; Start 03/30/19 at 09:00 Linagliptin (Tradjenta) 5 mg DAILY PO Last administered on 04/01/19 09:19; Start 03/30/19 at 09:00 Levofloxacin/ Dextrose (Levaquin Per Pharmacy) 1 each PRN DAILY PRN MC SEE COMMENTS; Start 03/30/19 at 08:30 Levofloxacin/ Dextrose 100 ml @ 100 mls/hr Q24H IV Last administered on 04/01/19 09:22; Start 03/30/19 at 09:00 Sodium Chloride 1,000 ml @ 80 mls/hr [id number] IV Last administered on 03/31/19at 19:33; Start 03/30/19 at 13:15 Insulin Human Lispro (HumaLOG) 0-9 UNITS TIDWMEALS SQ ; Start 03/30/19 at 17:00; Stop 03/30/19 at 13:15; Status DC Dextrose (Dextrose 50%-Water Syringe) 12.5 gm PRN Q15MIN PRN IV SEE COMMENTS; Start 03/30/19 at 13:15; Stop 03/30/19 at 13:14; Status DC Insulin Glargine (Lantus Syringe) 30 unit QHS SQ Last administered on 03/31/19at 21:09; Start 03/30/19 at 21:00 Glyburide (Diabeta) 5 mg BIDWMEALS PO Last administered on 04/01/19 09:19; Start 03/30/19 at 17:00 Metformin HCl (Glucophage) 500 mg BIDWMEALS PO Last administered on 12/5/19at 09:18; Start 03/30/19 at 17:00 Lactobacillus Rhamnosus (Culturelle) 1 cap BID PO Last administered on 04/01/19at 09:18; Start 03/30/19 at 21:00 Albuterol/ Ipratropium (Duoneb) 3 ml RTQID NEB Last administered on 04/01/19at 11:31; Start 03/31/19 at 08:40 Active Scripts Active Reported Albuterol Sulfate Conc Neb Soln (Albuterol Sulfate) 2.5 Mg/0.5 Ml Vial.neb 2.5 Mg NEB PRN PRN Hydrochlorothiazide Tablet (Hydrochlorothiazide) 12.5 Mg Tablet 12.5 Mg PO DAILY Spiriva (Tiotropium [place]) 18 Mcg Cap.w.dev 1 Cap IH DAILY Protonix (Pantoprazole Sodium) 20 Mg Tablet.dr 1 Tab PO DAILY Losartan Potassium 50 Mg Tablet 50 Mg PO DAILY Aspirin 81 Mg Tab.chew 1 Tab PO DAILY Januvia (Sitagliptin Phosphate) 50 Mg Tablet 1 Tab PO DAILY Vital Signs Vital Signs Date Time Temp Pulse Resp B/P (MAP) Pulse Ox O2 Delivery O2 Flow Rate FiO2 04/01/19 11:32 Nasal Cannula 1.0 04/01/19 11:00 97.5 81 16 162/75 (104) 96 97.5 Labs Laboratory Tests Test 03/30/19 17:10 03/30/19 20:07 03/31/19 03:20 03/31/19 08:11 Glucose (Fingerstick) 306 mg/dL (70-99) 213 mg/dL (70-99) 179 mg/dL (70-99) White Blood Count 18.0 x10^3/uL (4.0-11.0) Red Blood Count 4.21 x10^6/uL (4.30-5.70) Hemoglobin 13.4 g/dL (13.0-17.5) Hematocrit 39.5 % (39.0-53.0) Mean Corpuscular Volume 94 fL (79-100) Mean Corpuscular Hemoglobin 32 pg (25-35) Mean Corpuscular Hemoglobin Concent 34 g/dL (31-37) Red Cell Distribution Width 12.6 % (11.5-14.5) Platelet Count 183 x10^3/uL (140-400) Neutrophils (%) (Auto) 93 % (31-73) Lymphocytes (%) (Auto) 3 % (24-48) Monocytes (%) (Auto) 3 % (0-9) Eosinophils (%) (Auto) 0 % (0-3) Basophils (%) (Auto) 0 % (0-3) Neutrophils # (Auto) 16.8 x10^3/uL (1.8-7.7) Lymphocytes # (Auto) 0.6 x10^3/uL (1.0-4.8) Monocytes # (Auto) 0.6 x10^3/uL (0.0-1.1) Eosinophils # (Auto) 0.0 x10^3/uL (0.0-0.7) Basophils # (Auto) 0.0 x10^3/uL (0.0-0.2) Test 03/31/19 11:58 03/31/19 13:33 03/31/19 16:59 03/31/19 20:21 Glucose (Fingerstick) 196 mg/dL (70-99) 115 mg/dL (70-99) 112 mg/dL (70-99) Vancomycin Level Trough 13.0 mcg/mL (10.0-20.0) Vancomycin Last Dose Date Unknown Vancomycin Last Dose Time Unknown Test 04/01/19 07:51 04/01/19 11:34 Glucose (Fingerstick) 112 mg/dL (70-99) 133 mg/dL (70-99) Laboratory Tests Test 03/31/19 13:33 03/31/19 16:59 03/31/19 20:21 04/01/19 07:51 Vancomycin Level Trough 13.0 mcg/mL (10.0-20.0) Vancomycin Last Dose Date Unknown Vancomycin Last Dose Time Unknown Glucose (Fingerstick) 115 mg/dL (70-99) 112 mg/dL (70-99) 112 mg/dL (70-99) Test 04/01/19 11:34 Glucose (Fingerstick) 133 mg/dL (70-99) Allergies Allergies Coded Allergies Type Severity Reaction Last Updated Verified shellfish derived Allergy Severe 03/31/19 Yes adhesive tape Allergy Intermediate 03/31/19 Yes Disposition/Orders: D/C to Home CHARLIE CONNOR MD Apr 01, 2019 12:58
[2019-04-01] MEDS ORDERED: INSU100V8 SQ (13:03)
[2019-04-01] MEDS ORDERED: LACT1CAP19 PO (13:03)
[2019-04-01] MEDS ORDERED: GUAI5SYR PO (13:03)
[2019-04-01] MEDS ORDERED: BENZ-8 PO (13:03)
[2019-04-01] MEDS ORDERED: ALBU2.5V8 NEB (13:03)
[2019-04-01] MEDS ORDERED: ACET500T68 PO (13:03)
[2019-04-01] MEDS ORDERED: AMOX1TAB58 PO (13:03)
[2019-04-01] MEDS ORDERED: METF500T PO (13:03)
--- NOTE | 2019-04-01 13:07 | DISCH ---
DISCHARGE INSTRUCTIONS Condition on Discharge Condition on Discharge: Stable Activity After Discharge Activity Instructions for Disc: Activity as tolerated Lifting Instructions after Dis: No heavy lifting, No pulling or pushing Driving Instructions after Dis: Do not drive Weight Bearing Status after Di: As tolerated Diet after Discharge Diet after Discharge: Cardiac, Diabetic No Calorie Level Checks after Discharge Checks after discharge: Check blood press - daily Contacting the DR. after DC Call your doctor for: If your condition worsens Treatment/Equipment after DC Discharge Respiratory Equipmen: Oxygen, Nebulizer CHARLIE CONNOR MD Apr 01, 2019 13:07
[2019-04-01 13:16] LABS: BASO % 0 % (0-3); EOS % 0 % (0-3); HEMATOCRIT 43.1 % (39.0-53.0); HEMOGLOBIN 14.3 g/dL (13.0-17.5); LYMPH # 0.3 x10^3/uL (1.0-4.8); LYMPH % 2 % (24-48); MEAN CORPUSCULAR HEMOGLOBIN 31 pg (25-35); MEAN CORPUSCULAR HGB CONC 33 g/dL (31-37); MEAN CORPUSCULAR VOLUME 94 fL (79-100); MONO # 0.4 x10^3/uL (0.0-1.1); MONO % 3 % (0-9); NEUT # 13.9 x10^3/uL (1.8-7.7); NEUT % 95 % (31-73); PLATELET COUNT 234 x10^3/uL (140-400); RED BLOOD COUNT 4.59 x10^6/uL (4.30-5.70); WHITE BLOOD COUNT 14.6 x10^3/uL (4.0-11.0)
[2019-04-01] MEDS: VANCOMYCIN PER PHARMACY MC PRN (13:34)
[2019-04-01 15:00] VITALS: BP 150/66
--- NOTE | 2019-04-01 15:52 | NUR ---
ESTIVEN following pt. ESTIVEN phoned and faxed 02 orders to [facility] as they service in [place] as well.. Pt will be provided with Indogene 02 concentrator to take to [place]. Pt's has already confirmed with Airline they are able to take this type of tank inside plane. Deric from [facility] to deliver 02 tank to take home. Discussed with RN and Physician.
--- NOTE | 2019-04-01 16:48 | NUR ---
pt discharged home with family and instructions for follow up. pt with O2 tank from [facility]. provided pt with script and notes from RT for presentation to airline, if needed. pt stable upon dc. iv removed, cath intact.
== END 2019-04-01 16:51 | disposition home or self-care (01) | DRG 871 ==
LOC: ER 21:41 → 1 WEST ICU 22:20 → 5 SOUTH 03-30 13:45
PROVIDERS: ADMIT Internal Medicine; ATTEND Internal Medicine
DX: A41.9 Sepsis, unspecified organism (principal); J96.01 Acute respiratory failure with hypoxia; J18.9 Pneumonia, unspecified organism; E11.9 Type 2 diabetes mellitus without complications; E78.5 Hyperlipidemia, unspecified; I10 Essential (primary) hypertension; J43.9 Emphysema, unspecified; Z79.4 Long term (current) use of insulin; Z79.82 Long term (current) use of aspirin; Z87.891 Personal history of nicotine dependence
CPT/HCPCS: 36415; 36600; 71045; 80048; 80053; 80202; 82805; 82962; 83036; 83605; 83880; 84484; 85007; 85025; 87040; 87804; 93005; 94618; 94640; 96361; 96374; 96375; J0692; J1815; J1956; J2930; J3370; J3490; J7030; J7040; J7050; J7613; J7620; J7644; 97110; 97116; 97530; 99285-25; G0378